=== PATIENT | male | born 1950 | race Caucasian/White ===

== ENCOUNTER → 2019-10-19 | Outpatient (CLI) | payer MEDICARE ==
--- NOTE | 2019-10-19 13:01 | RADIOLOGY REPORT (SQ) ---
EXAM DESCRIPTION: MRI LUMBAR SPINE WITHOUT IMAGES COMPLETED DATE/TIME: 10/19/2019 10:37 am REASON FOR STUDY: (M54.5)LOW BACK PAIN;(M54.16)RADICULOPATHY, LUMBAR REGION M54.5 LOW BACK PAIN M54 .16 RADICULOPATHY, LUMBAR REGION COMPARISON: None. TECHNIQUE: Sagittal and Axial imaging includes T1, T2, STIR and gradient echo sequences. Coronal T2/ HASTE imaging. LIMITATIONS: None. FINDINGS: VISUALIZED UPPER ABDOMEN: High high T2 signal left renal cysts. SEGMENTATION: There are 5 lumbar-type vertebral bodies. There is no transition anatomy at the lumbos acral junction. ALIGNMENT: There is straightening of the normal lordotic curvature of the cervical spine. VERTEBRAE: Intact. BONE MARROW: Normal. DISC SIGNAL: The L3-L4, L4-L5 and L5-S1 intervertebral discs are narrowed and desiccated. POSTERIOR ELEMENTS: Intact. HARDWARE: None in the spine. CORD AND CONUS: The conus medullaris terminates at the level of T12-L1 and is normal in caliber and s ignal intensity. SOFT TISSUES: No abnormality. L1-L2: No spinal or foraminal stenosis. L2-L3: No spinal or foraminal stenosis. L3-L4: Broad-based disc bulge that flattens the ventral aspect of the thecal sac and encroaches upon the inferior aspect of the neuroforamina ; and degeneration of the facet joints. These findings resu lts in no high-grade foraminal or spinal stenosis. L4-L5: Broad-based disc bulge eccentric to the left that encroaches upon the inferior aspect the neur oforamina ; hypertrophy of the ligamentum flavum ; and degeneration of the facet joints. These findi ngs result in mild right and moderate left foraminal stenosis, mild compression of the thecal sac, an d probable compression of the intrathecal left L5 nerve root. L5-S1: Broad-based disc protrusion that flattens the ventral aspect of the thecal sac and encroaches upon the inferior aspect of the neuroforamina ; and degeneration of the facet joints. These findings results and mild to moderate right and mild left foraminal stenosis, and probable compression of the intrathecal left S1 nerve root. LOWER THORACIC: No stenosis. SACRUM: Intact. OTHER: No other findings. IMPRESSION: Degenerative spondylosis and facet arthropathy of the lumbar spine with moderate stenosi s of the left L4-L5 neuroforamen and probable compression of the intrathecal left L5 and S1 nerve michela ts as detailed above. TECHNICAL DOCUMENTATION: JOB ID: [id number] 2010 [employer]- All Rights Reserved Reading location - IP/workstation name: [email or web address]
== END ==
LOC: RAD 09:10
PROVIDERS: ATTEND Orthopaedic Surgery
DX: M54.16 Radiculopathy, lumbar region (principal); M47.897 Other spondylosis, lumbosacral region; M54.5 Low back pain
CPT/HCPCS: 72148

== ENCOUNTER 2019-12-30 19:12 | Inpatient (IN) | payer MEDICARE ==
--- NOTE | 2019-12-30 19:33 | ER Document Report ---
ED Medical Screen (RME) - General Chief Complaint: Breathing Difficulty Stated Complaint: DIFFICULTY BREATHING Time Seen by Provider: 12/30/19 19:25 Primary Care Provider: VIOLETA LOVING MD [Primary Care Provider] - Follow up as needed Information source: Patient, Relative Notes: Patient is a 69-year-old male comes the emergency room with a 3 to 4-day onset of increasing shortness of breath. Patient has a recent pertinent history for cardiac and that 1 year ago he went to [place] in January [id number] and was found to have need for 1 stent placement. He has had a slight history of co ngestive heart failure back then that seems to have cleared up. Patient also has been recently seen by a neurologist who is sent him to physical therapy because of a pinched nerve in his low back and some discomfort and pain running down his left leg. He is in physical therapy today when he got to the house and had him lay flat patient was unable to breathe because of the position on laying down. He denies having any dyspnea on exertion states he can walk without getting short of breath it is only when he lays down that he does so. He denies any chest pain. He does state that when he can catch his breath that is when he has heaviness in the chest. Physical examination: Patient is a frail-appearing 69-year-old male who does state that he is losing weight and does not know why. He does appear to be slightly uncomfortable. Cardiac: Patient is tachycardic at 113 beats a minute. No murmurs are heard on auscultation. Lungs: Bilateral breath sounds breath sounds decreased throughout primarily in the lower bases bilaterally with Rales heard on the left as compared to the right. Abdomen: Bowel sounds present all 4 quads nontender in a sitting position to palpation. Lower extremities patient has 2+ pitting edema in the left lower extremity. TRAVEL OUTSIDE OF THE [place] IN LAST 30 DAYS: No - Related Data Home Medications: metformin, atorvastatin,losartan,plavix, carvedilol, asa, soliqua Physical Exam - Vital signs Vitals: Temp Pulse Resp BP Pulse Ox 98.4 F 119 H 13 153/81 H 100 12/30/19 19:16 12/30/19 19:16 12/30/19 19:16 12/30/19 19:16 12/30/19 19:16 Course - Vital Signs Vital signs: Temp Pulse Resp BP Pulse Ox 98.4 F 119 H 20 153/87 H 100 12/30/19 19:20 12/30/19 19:20 12/30/19 19:20 12/30/19 19:20 12/30/19 19:20 Doctor's Discharge - Discharge Referrals: VIOLETA LOVING MD [Primary Care Provider] - Follow up as needed
[2019-12-30 19:50] LABS: ABSOLUTE BASOPHILS # (AUTO) 0.1 10^3/uL (0.0-0.2); ABSOLUTE EOSINOPHILS # (AUTO) 0.5 10^3/uL (0.0-0.6); ABSOLUTE LYMPHOCYTES (AUTO) 1.3 10^3/uL (0.5-4.7); ABSOLUTE MONOCYTES (AUTO) 0.6 10^3/uL (0.1-1.4); ABSOLUTE NEUT (AUTO) 5.6 10^3/uL (1.7-8.2); BASOPHILS % (AUTO) 1.3 % (0-2); EOSINOPHILS % (AUTO) 6.1 % (0-6); HEMATOCRIT 38.9 % (37.9-51.0); LYMPHOCYTES % (AUTO) 15.8 % (13-45); MEAN CORPUSCULAR HEMOGLOBIN 29.9 pg (27.0-33.4); MEAN CORPUSCULAR HGB CONC 33.5 g/dL (32.0-36.0); MEAN CORPUSCULAR VOLUME 89 fl (80-97); MONOCYTES % (AUTO) 7.6 % (3-13); PLATELET COUNT 276 10^3/uL (150-450); RED BLOOD COUNT 4.35 10^6/uL (4.35-5.55); RED CELL DISTRIBUTION WIDTH 13.2 % (11.5-14.0); SEGMENTED NEUTROPHILS % (AUTO) 69.2 % (42-78); TOTAL CELLS COUNTED % (AUTO) 100 %; WHITE BLOOD COUNT 8.1 10^3/uL (4.0-10.5)
[2019-12-30 20:15] LABS: ALBUMIN 4.3 g/dL (3.5-5.0); ALKALINE PHOSPHATASE 66 U/L (38-126); ANION GAP 7 (5-19); ASPARTATE AMINO TRANSFERASE 29 U/L (17-59); BILIRUBIN,TOTAL 0.6 mg/dL (0.2-1.3); BLOOD UREA NITROGEN 23 mg/dL (7-20); CALCIUM 9.4 mg/dL (8.4-10.2); CARBON DIOXIDE 28 mmol/L (22-30); CHLORIDE 102 mmol/L (98-107); GLUCOSE 213 mg/dL (75-110); TOTAL PROTEIN 7.9 g/dL (6.3-8.2)
--- NOTE | 2019-12-30 20:20 | RADIOLOGY REPORT (SQ) ---
EXAM DESCRIPTION: [facility]: XR CHEST 2 VIEWS Views: 2 CLINICAL HISTORY: 69 years Male; Short of breath; COMPARISON: None. FINDINGS: Lungs: There are small bilateral pleural effusions. Mild central interstitial edema is present diffusely in both lungs. No focal consolidation. No pneumothorax. Mediastinum: Mild aortic calcification. Heart size is normal. Bones: Bony structures are unremarkable. IMPRESSION: 1. Bilateral interstitial edema with small pleural effusions, likely congestive heart failure.
[2019-12-30 20:25] LABS: TROPONIN I 0.02 ng/mL
--- NOTE | 2019-12-30 21:12 | ER Document Report ---
ED Respiratory Problem - General Chief Complaint: Shortness Of Breath Stated Complaint: DIFFICULTY BREATHING Time Seen by Provider: 12/30/19 19:25 Notes: Patient is a 69-year-old male that comes emergency department for chief complaint of 4day of worsening shortness of breath. Over the past day he is also noticed some swelling in both of his legs. Patient also is undergoing physical therapy for his back and they told him that his heart rate has been elevated for the past several days as well. He denies chest pain, dizziness, nausea, vomiting, abdominal pain, flank pain. He is able to ambulate using his crutches but he cannot lie flat reportedly. He has a history of CAD with TN and stent in 2019 at [facility], he follows with local cardiology in [place]. Patient states that he was temporarily on a diuretic after his TN but this was taken off. Past medical history also includes type 2 diabetes, hypertension, hyperlipidemia, he is on Plavix, primary care is Dr. Murry. TRAVEL OUTSIDE OF THE [place] IN LAST 30 DAYS: No - Related Data Allergies/Adverse Reactions: No Known Allergies Allergy (Unverified 12/31/19 02:54) Home Medications: metformin, atorvastatin,losartan,plavix, carvedilol, asa, soliqua Past Medical History - General Information source: Patient, Relative - Social History Smoking Status: Former Smoker Frequency of alcohol use: None Drug Abuse: None Lives with: Family Family History: None Patient has homicidal ideation: No - Past Medical History Cardiac Medical History: Reports: Hx Coronary Artery Disease, Hx Heart Attack, Hx Hypertension Endocrine Medical History: Reports: Hx Diabetes Mellitus Type 2 Past Surgical History: Reports: Hx Cardiac Surgery - stent - Immunizations Hx Diphtheria, Pertussis, Tetanus Vaccination: Yes Review of Systems - Review of Systems Constitutional: No symptoms reported EENT: No symptoms reported Cardiovascular: See HPI Respiratory: See HPI Gastrointestinal: No symptoms reported Genitourinary: No symptoms reported Male Genitourinary: No symptoms reported Musculoskeletal: No symptoms reported Skin: No symptoms reported Hematologic/Lymphatic: No symptoms reported Neurological/Psychological: No symptoms reported Physical Exam - Vital signs Vitals: Temp Pulse Resp BP Pulse Ox 98.4 F 119 H 13 153/81 H 100 12/30/19 19:16 12/30/19 19:16 12/30/19 19:16 12/30/19 19:16 12/30/19 19:16 - Notes Notes: GENERAL: Alert, interacts well. No acute distress. HEAD: Normocephalic, atraumatic. EYES: Pupils equal, round, and reactive to light. Extraocular movements intact. ENT: Oral mucosa moist, tongue midline. Oropharynx unremarkable. Airway patent. LUNGS: Slightly decreased breath sounds bilaterally, rales heard in the lower lung vazquez especially on the left. No tachypnea or labored breathing. HEART: Tachycardia, normal rhythm, no murmur ABDOMEN: Soft, non-tender. Non-distended. EXTREMITIES: Moves all 4 extremities spontaneously. Bilateral 1+ pitting edema. Normal radial and dorsalis pedis pulses bilaterally. No cyanosis. BACK: no cervical, thoracic, lumbar midline tenderness. No saddle anesthesia, normal distal neurovascular exam. Moves all extremities in full range of motion. NEUROLOGICAL: Alert and oriented x3. Normal speech. Cranial nerves II through XII grossly intact. Strength 5/5 in all extremities. PSYCH: Normal affect, normal mood. SKIN: Warm, dry, normal turgor. No rashes or lesions noted. Course - Re-evaluation Re-evalutation: Patient is tachycardic at about 110 just at rest. He has shortness of breath with exertion and with lying flat he has orthopnea. He has rales on exam worse on the left. He has lower extremity edema. He denies history of heart failure and he is not currently on a diuretic. CBC nonspecific, chemistry nonspecific, BNP is elevated at greater than 1500, troponin indeterminate. Chest x-ray shows vascular congestion and small pleural effusions. D-dimer is positive. This was performed because of patient's worsening dyspnea on exertion and persistent tachycardia. CT was performed but shows vascular congestion and pleural effusions but no blood clot or other concerning findings. I had discussed this before the d-dimer with patient at length, discussed the details of this, they state understanding. Given Lasix, given nitroglycerin, because of patient's new heart failure, symptomatic and difficult ambulation and lying down, and need for additional work-up and treatment patient will require admission. Discussed with Dr. Clemente. Discussed with Dr. Ardon, hospitalist, patient accepted to [facility] for admission. Patient and significant other state appreciation and agreement. - Vital Signs Vital signs: Temp Pulse Resp BP Pulse Ox 97.4 F 106 H 16 147/83 H 100 12/31/19 02:34 12/31/19 02:34 12/31/19 02:34 12/31/19 02:34 12/31/19 02:34 - Laboratory Result Diagrams: 12/30/19 19:37 12/30/19 19:37 Laboratory results interpreted by me: 12/30/19 12/30/19 12/30/19 19:37 19:37 19:37 Hgb 13.0 L Eos % (Auto) 6.1 H D-Dimer Sodium 136.9 L BUN 23 H Creatinine 1.32 H Est GFR (MDRD) Non-Af 54 L Glucose 213 H NT-Pro-B Natriuret Pep 1540 H 12/30/19 19:37 Hgb Eos % (Auto) D-Dimer 0.72 H Sodium BUN Creatinine Est GFR (MDRD) Non-Af Glucose NT-Pro-B Natriuret Pep - EKG Interpretation by Me Additional EKG results interpreted by me: EKG shows sinus tachycardia at a rate of 115, borderline prolonged QT interval at 482, normal axis, no T wave inversions or ST segment changes in consecutive leads. Some artifact is present. Discharge - Discharge Clinical Impression: Shortness of breath, Pulmonary vascular congestion, Swelling of lower extremity, Tachycardia Condition: Stable Disposition: ADMITTED INPATIENT Admitting Provider: Duglas (Hospitalist) Unit Admitted: [facility]
--- NOTE | 2019-12-30 23:47 | RADIOLOGY REPORT (SQ) ---
CLINICAL HISTORY: tachycardia, short of breath COMPARISON: 09/18/2014. TECHNIQUE: CT CHEST ANGIOGRAPHY WITHOUT THEN WITH IV CONTRAST on 12/30/2019 10:38 PM CDT. MIPS reconstructions were generated. This exam was performed according to our departmental dose-optimization program, which includes automated exposure control, adjustment of the mA and/or kV according to patient size and/or use of iterative reconstruction technique. MIP images were generated. FINDINGS: Thoracic aorta is normal in course and caliber without aneurysm or dissection. Pulmonary arteries are adequately opacified without acute or chronic filling defects. The heart is moderately enlarged. There is no pericardial effusion. Intrathoracic lymph nodes are not enlarged. There are moderate bilateral pleural effusions. Central airways are patent. There is bibasilar atelectasis. There is mild intralobular septal thickening. There are no acute abnormalities within the limited images of the upper abdomen. There are no acute osseous findings. No suspicious bony lesions. IMPRESSION: Cardiomegaly with no aortic dissection or aneurysm. No pulmonary embolus. Pleural effusions with probable mild pulmonary edema.
[2019-12-30] MEDS ORDERED: FUROSEMIDE INJ/PF 40 MG/4 ML SDV IV ONE (23:53)
[2019-12-30] MEDS ORDERED: NITROGLYCERIN 5 MG (0.2 MG/HR) PATCH.TD24 TD ONE (23:53)
[2019-12-31] MEDS ORDERED: ACETAMINOPHEN 325 MG TABLET PO PRN (01:18)
[2019-12-31] MEDS ORDERED: MAGNESIUM HYDROXIDE SUSP 30 ML UDCUP PO PRN ×2 (01:18→01:47)
[2019-12-31] MEDS ORDERED: PROMETHAZINE HCL INJ 25 MG/1 ML VIAL IV PRN (01:18)
[2019-12-31] MEDS ORDERED: MAG HYDROX/AL HYDROX/SIMETH SUSP 30 ML UDCUP PO PRN (01:18)
[2019-12-31] MEDS ORDERED: MORPHINE SULFATE 10 MG/ML INJ IV PRN ×6 (01:47→11:35)
[2019-12-31] MEDS ORDERED: DEXTROSE 40% GEL 15 GM TUBE PO PRN ×2 (01:47)
[2019-12-31] MEDS ORDERED: GLUCAGON,HUMAN RECOMB 1 MG INJ IM PRN (01:47)
[2019-12-31] MEDS ORDERED: METOPROLOL TARTRATE PF/INJ 5 MG/5 ML SDV IV PRN (01:47)
[2019-12-31] MEDS ORDERED: LORAZEPAM INJ 2 MG/1 ML VIAL IV PRN (01:47)
[2019-12-31] MEDS ORDERED: DEXTROSE 50%-WATER 25 GM/50 ML DISP.SYRIN IV PRN ×2 (01:47)
[2019-12-31] MEDS ORDERED: MELATONIN 5 MG TABLET PO PRN (01:47)
[2019-12-31] MEDS ORDERED: GUAIFENESIN SYRP 200 MG/10 ML UDC PO PRN (01:49)
[2019-12-31] MEDS: CARVEDILOL 6.25 MG TABLET PO SCH ×3 (03:00→21:14)
--- NOTE | 2019-12-31 03:17 | PDOC H&P ---
History of Present Illness Admission Date/PCP: 12/31/2019 00:58 VIOLETA LOVING MD Patient complains of: Dyspnea History of Present Illness: MIGUEL SANTOS JR is a 69 year old male who presents the emergency room with a 4-day history of dyspnea. He admits progressively worsening dyspnea over the last 4 days becoming severe over the last 24 hours prior to presentation. His dyspnea is worsened by exertion. His dyspnea has been accompanied by orthopnea and associated with increased swelling in his lower extremities over the last 24 hours. He denies other associated or accompanying signs and symptoms. He denies prior similar episodes. He has not identified any additional aggravating or ameliorating factors for his dyspnea. In the emergency room he was found to have a BNP of 1540 and a chest x-ray demonstrating congestive heart failure. Patient was subsequently admitted to the hospital for further evaluation and treatment on the heart failure protocol in the IMCU. Past Medical History Cardiac Medical History: Reports: Coronary Artery Disease, Myocardial Infarction, Hyperlipidema, Hypertension Denies: Atrial Fibrillation, Congestive Heart Failure, DVT, Pulmonary Embolism Pulmonary Medical History: Denies: Asthma, Chronic Obstructive Pulmonary Disease (COPD) EENT Medical History: Denies: Cataracts, Ears - Hearing aids Neurological Medical History: Denies: Hemorrhagic CVA, Ischemic CVA, Seizures Endocrine Medical History: Reports: Diabetes Mellitus Type 2 Denies: Diabetes Mellitus Type 1, Hyperthyroidism, Hypothyroidism, Obesity Renal/ Medical History: Denies: Chronic Kidney Disease, Nephrolithiasis Malignancy Medical History: Reports: None GI Medical History: Denies: Cirrhosis, Crohn's Disease, Gastroesophageal Reflux Disease, Hepatitis, Peptic Ulcer Disease, Ulcerative Colitis Musculoskeltal Medical History: Reports: Other - Lower back pain with radiculopathy to left lower extremity Denies: Arthritis, Gout Skin Medical History: Denies: Eczema, Psoriasis Psychiatric Medical History: Denies: Alcohol Dependency, Substance Abuse, Tobacco Dependency Traumatic Medical History: Reports: None Hematology: Denies: Anemia, Bleeding Tendencies Infectious Medical History: Reports: None Past Surgical History Past Surgical History: Reports: Cardiac Catheterization, Coronary Stent Social History Information Source: Patient Lives with: Spouse/Significant other Smoking Status: Former Smoker Electronic Cigarette use?: No Frequency of Alcohol Use: None Hx Recreational Drug Use: No Drugs: None Hx Prescription Drug Abuse: No - Advance Directive Resuscitation Status: Full Code Surrogate healthcare decision maker:: Katheryn Santos Family History Family History: CVA. denies: CAD, DM, Hypertension, Malignancy Parental Family History Reviewed: Yes Children Family History Reviewed: No Sibling(s) Family History Reviewed.: Yes Medication/Allergy Home Medications: Atorvastatin Calcium [Lipitor 80 mg Tablet] 80 mg PO QHS 12/31/19 Carvedilol [Coreg 6.25 mg Tablet] 12/31/19 Clopidogrel Bisulfate [Plavix 75 mg Tablet] 75 mg PO 12/31/19 Allergies/Adverse Reactions: No Known Allergies Allergy (Unverified 12/31/19 02:54) Review of Systems Constitutional: ABSENT: chills, fever(s) Eyes: ABSENT: visual disturbances, other - Eye pain Ears: ABSENT: hearing changes, other - Ear pain Nose, Mouth, and Throat: ABSENT: headache(s), sore throat Cardiovascular: PRESENT: as per HPI, dyspnea on exertion, edema, orthropnea. A BSENT: chest pain, palpitations Respiratory: PRESENT: as per HPI, dyspnea. ABSENT: cough Gastrointestinal: ABSENT: abdominal pain, constipation, diarrhea, nausea, vomiting Genitourinary: ABSENT: dysuria, hematuria Musculoskeletal: PRESENT: back pain. ABSENT: joint swelling, muscle weakness Integumentary: ABSENT: pruritus, rash Neurological: ABSENT: confusion, convulsions, focal weakness, memory loss, syncope Psychiatric: ABSENT: anxiety, depression Endocrine: ABSENT: cold intolerance, heat intolerance Hematologic/Lymphatic: ABSENT: easy bleeding, easy bruising Allergic/Immunologic: ABSENT: seasonal rhinorrhea Physical Exam Vital Signs: Temp Pulse Resp BP Pulse Ox 98.4 F 119 H 20 153/87 H 100 12/30/19 19:20 12/30/19 19:20 12/30/19 19:20 12/30/19 19:20 12/30/19 19:20 Intake & Output 12/29/19 12/30/19 12/31/19 23:59 23:59 23:59 Output Total 800 490 Balance -800 -490 Weight 69.853 kg General appearance: PRESENT: no acute distress, cooperative Head exam: PRESENT: atraumatic, normocephalic Eye exam: PRESENT: conjunctiva pink. ABSENT: conjunctival injection, scleral icterus Ear exam: PRESENT: normal external ear exam. ABSENT: bleeding, drainage Mouth exam: PRESENT: dry mucosa, neck supple Neck exam: PRESENT: JVD - Bilateral at 30 degrees elevation. ABSENT: thyromegaly, tracheal deviation Respiratory exam: PRESENT: rales - Fine bibasilar rales, symmetrical Cardiovascular exam: PRESENT: gallop - S4 gallop rhythm, RRR, tachycardia. ABSENT: clicks, rubs Pulses: PRESENT: normal radial pulses, normal dorsalis pedis pul Vascular exam: PRESENT: normal capillary refill. ABSENT: pallor GI/Abdominal exam: PRESENT: normal bowel sounds, soft. ABSENT: tenderness Rectal exam: PRESENT: deferred Extremities exam: PRESENT: pedal edema, +1 edema - Bilateral pretibial pitting edema. ABSENT: joint swelling Musculoskeletal exam: ABSENT: deformity, dislocation Neurological exam: PRESENT: alert, oriented to person, oriented to place, oriented to time, oriented to situation, CN II-XII grossly intact. ABSENT: motor sensory deficit Psychiatric exam: PRESENT: appropriate affect, normal mood Skin exam: PRESENT: dry, intact, warm. ABSENT: jaundice, rash, urticaria Results Laboratory Results: 12/30/19 19:37 12/30/19 19:37 12/30/19 12/30/19 19:37 19:37 WBC 8.1 RBC 4.35 Hgb 13.0 L Hct 38.9 MCV 89 MCH 29.9 MCHC 33.5 RDW 13.2 Plt Count 276 Seg Neutrophils % 69.2 Sodium 136.9 L Potassium 5.0 Chloride 102 Carbon Dioxide 28 Anion Gap 7 BUN 23 H Creatinine 1.32 H Est GFR ( Amer) > 60 Glucose 213 H Calcium 9.4 Total Bilirubin 0.6 AST 29 Alkaline Phosphatase 66 Total Protein 7.9 Albumin 4.3 12/30/19 19:37 Troponin I 0.020 NT-Pro-B Natriuret Pep 1540 H Impressions: Chest X-Ray 12/30/19 19:33 IMPRESSION: 1. Bilateral interstitial edema with small pleural effusions, likely congestive heart failure. Chest/Abdomen CTA 12/30/19 22:38 IMPRESSION: Cardiomegaly with no aortic dissection or aneurysm. No pulmonary embolus. Pleural effusions with probable mild pulmonary edema. Assessment and Plan - Diagnosis (1) Acute congestive heart failure Qualifiers: Heart failure type: unspecified Qualified Code(s): I50.9 - Heart failure, unspecified Is this a current diagnosis for this admission?: Yes (2) Tachycardia Is this a current diagnosis for this admission?: Yes (3) Essential hypertension Is this a current diagnosis for this admission?: Yes (4) Hyperlipidemia, unspecified Qualifiers: Hyperlipidemia type: unspecified Qualified Code(s): E78.5 - Hyperlipidemia, unspecified Is this a current diagnosis for this admission?: Yes (5) Diabetes mellitus type 2 in nonobese Is this a current diagnosis for this admission?: Yes - Plan Summary Summary: Patient will be admitted to the [facility] where he will receive routine supportive and symptomatic cares. He will be treated via the congestive heart failure protocol. Dr. Madden will be consulted for cardiology evaluation. He will use morphine sulfate 2 to 4 mg IV every 2 hours as needed for pain. He will use Ativan 1 mg IV every 4 hours as needed for anxiety or restlessness. He will be started on a cardiac and diabetic restricted diet. - Time Time Spent with patient: 15-24 minutes Medications reviewed and adjusted accordingly: Yes Anticipated Discharge Disposition: Home with Home Health Anticipated Discharge: within 72 hours - Inpatient Certification Based on my medical assessment, after consideration of the patient's comorbidities, presenting symptoms, or acuity I expect that the services needed warrant INPATIENT care.: Yes I certify that my determination is in accordance with my understanding of Medic are's requirements for reasonable and necessary INPATIENT services [42 CFR 412.3e].: Yes Medical Necessity: Significant Comorbidiites Make Outpatient Treatment Too Risky, Need Close Monitoring Due to Risk of Patient Decompensation, Need For Continuous Telemetry Monitoring, Risk of Complication if Not Cared For in Hospital
[2019-12-31] MEDS ORDERED: FUROSEMIDE INJ/PF 40 MG/4 ML SDV IV SCH ×2 (06:00→18:00)
[2019-12-31] MEDS ORDERED: NITROGLYCERIN 2% OINTMENT 1 GM PACKET TP SCH (06:00)
[2019-12-31] MEDS: PANTOPRAZOLE SODIUM 40 MG TABLET.DR PO SCH (06:27)
[2019-12-31] MEDS: HEPARIN SOD (PORCINE) 5,000 UNIT/ML 1 ML VIAL SUBCUT SCH ×3 (06:31→21:15)
[2019-12-31 07:02] LABS: CREATINE KINASE MB 1.35 ng/mL (<4.55); TROPONIN I 0.028 ng/mL
[2019-12-31] MEDS: INSULIN REG, HUMAN 100 UNIT/ML 3 ML VIAL (PYX) SUBCUT SCH ×4 (08:13→21:17)
--- NOTE | 2019-12-31 08:44 | PDOC CONSULTATION ---
Consultation Consult Date: 12/31/19 Attending physician:: NASIR ALLEN Provider Consulted: DANIELE ROMERO Consult reason:: HF History of Present Illness Admission Date/PCP: 12/31/19 00:55 VIOLETA LOVING MD History of Present Illness: MIGUEL MACARIO JR is a 69 year old male history of CAD (inferior STEMI, s/p BEN to mRCA 01/13/19, COFFEE GRINDER mLCx), insulin requiring type 2 diabetes mellitus, hypertension, hyperlipidemia who is consulted to our service for evaluation of heart failure. He is followed by my partner in the office, Dr. Porter who notes the patient's consistent "confusion over medication changes made at the last visit. Even though the patient brings handwritten instructions that were provided to him at last visit he did not follow them correctly. The patient was to start carvedilol in place of metoprolol and notes starting carvedilol than stopping and restarting metoprolol which is unclear. I also asked the patient to use Lasix on an as-needed basis for weight gain of which she explains there was weight gain however his weight is lower today than at previous visits". The patient had been in his usual state of health until approximately 4 days prior to admission when he began noticing racing heart as well as lower extremity edema associated with shortness of breath consistent with heart failure symptoms. This morning he feels much better and is found resting comfortably in his bed. He admits that he had not been taking his Lasix because he had been losing weight. He tells me that he had been switched from Brilinta to Plavix 75 mg daily because of a very high co-pay that he cannot afford. He had been taking his losartan at home however he does not remember what dose he supposed to be on. His telemetry shows normal sinus rhythm without any ventricular dysrhythmias. His fluid balance since admission is -1290 cc. His cardiac troponins have been in the indeterminate range with an elevated proBNP at a little bit over 1500. Physical exam on 12/31/2019: GENERAL: Pleasant and conversational. Oriented x3 with normal mood. Not in acute distress. Well groomed and well developed. HEENT: Normocephalic, atraumatic. Pupils equal. Sclerae anicteric. Oropharynx moist. NECK: No JVD. No carotid bruits. LUNGS: Mild Rales at both bases. Normal respiratory effort without the use of accessory muscles or intercostal retractions. CARDIOVASCULAR: Regular rate and rhythm, normal S1 and S2 without murmurs, rubs, or gallops. PMI not displaced. ABDOMEN: No masses or tenderness to palpation. No bruit. No splenomegaly or hepatomegaly. No abdominal aorta bruit noted. EXTREMITIES: Trace pitting edema bilaterally, no cyanosis, no clubbing. +2 pulses femoral and pedal pulses bilaterally. SKIN: No lesions or rashes. MUSCULOSKELETAL: No chest tenderness to palpation. NEUROLOGIC: Nonfocal. No gross sensory or motor deficits bilateral upper or lower extremities. Outpatient medications per most recent cardiology visit on on 05/19/2019: -Aspirin 81 mg daily, -Brilinta 90 mg twice a day, -Atorvastatin 80 mg daily at bedtime and tolerating these medications without any complaints. -Losartan 25 mg daily. -Furosemide 40 mg once daily. His home weight ranges between 158 and 160 pounds. -Metoprolol succinate 25 mg once daily. He denies lower extremity edema, orthopnea or PND. Cardiac studies: CARDIAC CATHERIZATION Ht: 68 inches Wt: 72.57 kgs BSA: 1.86 Procedure Date: 01/13/2019 PCI ACUTE CLOSURE DURING AMI W/BEN LEFT HEART CATH WITH LV PCI OF COFFEE GRINDER ANY COMBO Other Inferior STEMI CONCLUSIONS Acute UT due to occlusion of Mid RCA Successful PCI with Drug eluting stent and PTCA to the Mid RCA No Aortic Valve Stenosis LEFT HEART ASSESSMENT Left Ventricular Ejection Fraction: Not assessed (due to elevated Cr) LVEDP: 21 mmHg Mildly elevated Left Ventricular End Diastolic Pressure Valve Assessment: No Aortic Valve Stenosis CORONARY ANGIOGRAPHY DOMINANCE: Right Dominant LEFT MAIN: No significant disease noted LEFT ANTERIOR DECENDING ARTERY: PROX LAD: Mild luminal irregularities less than 30% DIAGONAL 1: 60 % Ostial Stenosis, Vessel is small in size DIAGONAL 2: 80 % Proximal Stenosis (not felt to be a culprit lesion due to inferior EKG changes.) CIRCUMFLEX ARTERY: MID CIRC: appears to be COFFEE GRINDER with faint homocollaterals to two small caliber OM branches. RAMUS: No significant disease noted, Vessel is small in size RIGHT CORONARY ARTERY: MID RCA: 85 % Stenosis RT PLV: No significant disease noted RIGHT PDA: No significant disease noted COLLATERAL FLOW: Collateral flow from RCA to CIRC INTERVENTION PROCEDURE INFORMATION LESION SITE: RCA (Mid) , Pre Intervention Stenosis: 85 % Pre intervention VANESSA flow: VANESSA-3 Post Intervention Stenosis: 0 % Post intervention VANESSA flow: VANESSA-3 PROCEDURE: Drug Eluting Stent with pre and post dilatation. Balloon(s) Balloon- Trek 2.5x15 Inflated @ 17 franko for 20 secs Stent(s) deployed @ 20 franko for 20 secs 16atm for 20 secs LESION SITE: Circumflex (Mid) 100%chronic total occlusion: Yes Balloon(s) Balloon- Mini Trek 1.2x6 Echo 01/14/19: Cardiac Echo w/Contrast Cardiac Echo with Contrast Report A complete two-dimensional transthoracic echocardiogram was performed including 2D, M-mode, spectral and tissue Doppler and color flow Doppler. Definity echo enhancing agent used. Definity lot number: [id number]. Contrast was injected into an intravenous site in the left arm. Interpretation Summary Left ventricular systolic function is normal. Left ventricular wall motion is normal. Moderate mitral regurgitation. Trace aortic insufficiency Past Medical History Cardiac Medical History: Reports: Coronary Artery Disease, Myocardial Infarction, Hyperlipidema, Hypertension Denies: Atrial Fibrillation, Congestive Heart Failure, DVT, Pulmonary Embolism Pulmonary Medical History: Denies: Asthma, Chronic Obstructive Pulmonary Disease (COPD) EENT Medical History: Denies: Cataracts, Ears - Hearing aids Neurological Medical History: Denies: Hemorrhagic CVA, Ischemic CVA, Seizures Endocrine Medical History: Reports: Diabetes Mellitus Type 2 Denies: Diabetes Mellitus Type 1, Hyperthyroidism, Hypothyroidism, Obesity Renal/ Medical History: Denies: Chronic Kidney Disease, Nephrolithiasis Malignancy Medical History: Reports: None GI Medical History: Denies: Cirrhosis, Crohn's Disease, Gastroesophageal Reflux Disease, Hepatitis, Peptic Ulcer Disease, Ulcerative Colitis Musculoskeltal Medical History: Reports: Other - Lower back pain with radiculopathy to left lower extremity Denies: Arthritis, Gout Skin Medical History: Denies: Eczema, Psoriasis Psychiatric Medical History: Denies: Alcohol Dependency, Depression, Substance Abuse, Tobacco Dependency Traumatic Medical History: Reports: None Hematology: Denies: Anemia, Bleeding Tendencies Infectious Medical History: Reports: None Past Surgical History Past Surgical History: Reports: Cardiac Catheterization, Coronary Stent Social History Lives with: Family Smoking Status: Former Smoker Cigarettes Packs Per Day: 1 Electronic Cigarette use?: No Number of Years Smokin Last Time Smoked: 10 years ago Frequency of Alcohol Use: None Hx Recreational Drug Use: No Drugs: None Hx Prescription Drug Abuse: No - Advance Directive Resuscitation Status: Full Code Family History Family History: None Parental Family History Reviewed: Yes Children Family History Reviewed: Yes Sibling(s) Family History Reviewed.: Yes Medication/Allergy Home Medications: Atorvastatin Calcium [Lipitor 80 mg Tablet] 80 mg PO QHS 12/31/19 Carvedilol [Coreg 6.25 mg Tablet] 12/31/19 Clopidogrel Bisulfate [Plavix 75 mg Tablet] 75 mg PO 12/31/19 Allergies/Adverse Reactions: No Known Allergies Allergy (Unverified 12/31/19 02:54) Physical Exam Vital Signs: Temp Pulse Resp BP Pulse Ox 97.4 F 106 H 16 147/83 H 100 12/31/19 02:34 12/31/19 02:34 12/31/19 02:34 12/31/19 02:34 12/31/19 02:34 Intake & Output 12/29/19 12/30/19 12/31/19 06:59 06:59 06:59 Output Total 1290 Balance -1290 Weight 69.9 kg Results Laboratory Results: 12/30/19 19:37 12/30/19 19:37 12/30/19 12/30/19 19:37 19:37 WBC 8.1 RBC 4.35 Hgb 13.0 L Hct 38.9 MCV 89 MCH 29.9 MCHC 33.5 RDW 13.2 Plt Count 276 Seg Neutrophils % 69.2 Sodium 136.9 L Potassium 5.0 Chloride 102 Carbon Dioxide 28 Anion Gap 7 BUN 23 H Creatinine 1.32 H Est GFR ( Amer) > 60 Glucose 213 H Calcium 9.4 Total Bilirubin 0.6 AST 29 Alkaline Phosphatase 66 Total Protein 7.9 Albumin 4.3 12/30/19 12/31/19 12/31/19 19:37 00:33 00:33 Creatine Kinase 126 CK-MB (CK-2) Troponin I 0.020 0.035 NT-Pro-B Natriuret Pep 1540 H 12/31/19 00:33 Creatine Kinase CK-MB (CK-2) 1.58 Troponin I Cancelled NT-Pro-B Natriuret Pep Impressions: Chest X-Ray 12/30/19 19:33 IMPRESSION: 1. Bilateral interstitial edema with small pleural effusions, likely congestive heart failure. Chest/Abdomen CTA 12/30/19 22:38 IMPRESSION: Cardiomegaly with no aortic dissection or aneurysm. No pulmonary embolus. Pleural effusions with probable mild pulmonary edema. 12/30/19 19:37 12/30/19 19:37 MCV 89 fl (80-97) 12/30/19 19:37 MCH 29.9 pg (27.0-33.4) 12/30/19 19:37 MCHC 33.5 g/dL (32.0-36.0) 12/30/19 19:37 RDW 13.2 % (11.5-14.0) 12/30/19 19:37 Seg Neutrophils % 69.2 % (42-78) 12/30/19 19:37 Chloride 102 mmol/L (98-107) 12/30/19 19:37 Carbon Dioxide 28 mmol/L (22-30) 12/30/19 19:37 Anion Gap 7 (5-19) 12/30/19 19:37 Est GFR ( Amer) > 60 (>60) 12/30/19 19:37 Glucose 213 mg/dL (75-110) H 12/30/19 19:37 Calcium 9.4 mg/dL (8.4-10.2) 12/30/19 19:37 Total Bilirubin 0.6 mg/dL (0.2-1.3) 12/30/19 19:37 AST 29 U/L (17-59) 12/30/19 19:37 Alkaline Phosphatase 66 U/L (38-126) 12/30/19 19:37 Total Protein 7.9 g/dL (6.3-8.2) 12/30/19 19:37 Albumin 4.3 g/dL (3.5-5.0) 12/30/19 19:37 12/30/19 12/31/19 12/31/19 19:37 00:33 00:33 Creatine Kinase 126 CK-MB (CK-2) Troponin I 0.020 0.035 NT-Pro-B Natriuret Pep 1540 H 12/31/19 00:33 Creatine Kinase CK-MB (CK-2) 1.58 Troponin I Cancelled NT-Pro-B Natriuret Pep Current Medication List Generic Name Dose Route Start Last Admin Trade Name Mikq PRN Reason Stop Dose Admin Acetaminophen 650 mg 12/31/19 01:18 Tylenol 325 Mg Tablet PO 01/30/20 01:17 Q4HP PRN pain or temp greater than 101F Al Hydrox/Mg Hydrox/Simethicone 30 ml 12/31/19 01:18 Maalox Plus Susp 30 Udcup PO 01/30/20 01:17 Q4HP PRN HEARTBURN Aspirin 81 mg 12/31/19 10:00 Ecotrin 81 Mg Ec Tablet PO 01/30/20 09:59 DAILY [facility] Carvedilol 6.25 mg 12/31/19 01:45 12/31/19 03:00 Coreg 6.25 Mg Tablet PO 01/30/20 01:44 6.25 mg Q12 ELLEN Administration Clopidogrel Bisulfate 75 mg 12/31/19 10:00 Plavix 75 Mg Tablet PO 01/30/20 09:59 DAILY [facility] Dextrose 12.5 gm 12/31/19 01:47 Dextrose Inj 50% Syringe (25 Gm/50 Ml) IV 01/30/20 01:46 PRN PRN FOR BG 50-69 IN ALERT PATIENT Protocol Dextrose 25 gm 12/31/19 01:47 Dextrose Inj 50% Syringe (25 Gm/50 Ml) IV 01/30/20 01:46 PRN PRN PER PROTOCOL Protocol Docusate Sodium 100 mg 12/31/19 10:00 Colace 100 Mg Capsule PO 01/30/20 09:59 DAILY [facility] Furosemide 40 mg 12/31/19 06:00 Lasix Inj/Pf 40 Mg/4 Ml Sdv IV 01/30/20 05:59 Q6 ELLEN Glucagon 1 mg 12/31/19 01:47 Glucagen Inj 1 Mg Vial IM 01/30/20 01:46 PRN PRN Evaluate for BG < 70 Protocol Glucose 15 gm 12/31/19 01:47 Glutose 40% Gel 15 Gm Tube PO 01/30/20 01:46 PRN PRN FOR BG 50-69 IN ALERT PATIENT Protocol Glucose 30 gm 12/31/19 01:47 Glutose 40% Gel 15 Gm Tube PO 01/30/20 01:46 PRN PRN FOR BG < 50 IN ALERT PATIENT Protocol Guaifenesin 200 mg 12/31/19 01:49 Robitussin Syrup 200 Mg/10 Ml Ud Cup PO 01/30/20 01:48 Q4HP PRN COUGH Heparin Sodium (Porcine) 5,000 unit 12/31/19 06:00 Heparin Inj 5,000 Units/Ml 1 Ml Vial SUBCUT 01/30/20 05:59 Q8 ELLEN Insulin Human Regular 0 - 15 unit 12/31/19 08:00 Humulin R (Pyxis) Insulin 100 Unit/Ml 3ml SUBCUT 01/30/20 07:59 ACHS [facility] Protocol Lorazepam 1 mg 12/31/19 01:47 Ativan Inj 2 Mg/1 Ml Vial IV 01/07/20 01:46 Q4HP PRN ANXIETY/AGITATION Magnesium Hydroxide 30 ml 12/31/19 01:18 Milk Of Magnesia 30 Ml Udcup PO 01/30/20 01:17 HSP PRN FOR CONSTIPATION Magnesium Hydroxide 30 ml 12/31/19 01:47 Milk Of Magnesia 30 Ml Udcup PO 01/30/20 01:46 HSP PRN FOR CONSTIPATION Melatonin 5 mg 12/31/19 01:47 Melatonin 5 Mg Tablet PO 01/30/20 01:46 HSP PRN SLEEP OR INSOMNIA Metoprolol Tartrate 5 mg 12/31/19 01:47 Lopressor Inj/Pf 5 Mg/5 Ml Sdv IV 01/30/20 01:46 Q4HP PRN Give For Sbp > 160 / Dbp > 100 Morphine Sulfate 2 mg 12/31/19 01:47 Morphine 10 Mg/Ml Inj IV 01/07/20 01:46 Q1HP PRN Acute Severe Dyspnea Morphine Sulfate 2 mg 12/31/19 02:05 Morphine 10 Mg/Ml Inj IV 01/07/20 02:04 Q2HP PRN PAIN SCALE 2/5 Morphine Sulfate 3 mg 12/31/19 02:05 Morphine 10 Mg/Ml Inj IV 01/07/20 02:04 Q2HP PRN PAIN SCALE 3-4/5 Morphine Sulfate 4 mg 12/31/19 02:05 Morphine 10 Mg/Ml Inj IV 01/07/20 02:04 Q2HP PRN PAIN SCALE 5/5 Nitroglycerin 1 gm 12/31/19 06:00 Nitrol 2% Ointment 1gm Packet TP 01/30/20 05:59 Q6 ELLEN Pantoprazole Sodium 40 mg 12/31/19 06:[address] Tablet PO 01/30/20 05:59 Q6AM ELLEN Promethazine HCl 12.5 mg 12/31/19 01:18 Phenergan Inj 25 Mg/1 Ml Vial IV 01/30/20 01:17 Q4HP PRN FOR NAUSEA/VOMITING Sodium Chloride 2.5 ml 12/31/19 06:00 Saline Flush 2.5 Ml Monoject Prefil Syrin IV 01/30/20 05:59 Q8 ELLEN Discontinued Medications Generic Name Dose Route Start Last Admin Trade Name Freq PRN Reason Stop Dose Admin Furosemide 40 mg 12/30/19 23:53 12/31/19 00:05 Lasix Inj/Pf 40 Mg/4 Ml Sdv IV 12/30/19 23:54 40 mg NOW ONE Administration Nitroglycerin 1 each 12/30/19 23:53 12/31/19 00:05 Nitro-Dur 5 Mg (0.2 Mg/Hr) Transdermal Patch TD 12/30/19 23:54 1 each NOW ONE Administration Assessment & Plan - Diagnosis (1) CAD (coronary artery disease) Plan: Inferior STEMI in January 2019. Status post 1 xience drug-eluting stent 3.0 mm 28 mm to the mid RCA January 13, 2019. With preserved left ventricular ejection fraction with moderate mitral regurgitation noted on echo; and residual disease and COFFEE GRINDER of left circumflex per catheterization report above. Unfortunately the patient had not been able to afford Brilinta therefore he was changed to Plavix 75 mg daily. Recommendations: -Continue with current medical management. -Continue with cardiac telemetry. -Start intensity statin therapy with atorvastatin 80 mg daily at bedtime. -We will continue to follow-up with you. (2) Acute congestive heart failure Qualifiers: Heart failure type: unspecified Qualified Code(s): I50.9 - Heart failure, unspecified Plan: The patient has a history of heart failure with preserved ejection fraction and had been managed in the outpatient setting with as needed Lasix however his outpatient veterinary parasitologist noted on several of his notes that the patient consistently appears to be confused about his medications and never brought them to the office for medication reconciliation. He admits diet as well as not taking his Lasix as instructed. He states that he had been taking his losartan at home but does not remember the dose. Recommendations: -Echocardiogram today to assess for structural heart disease. -Continue with current diuresis and management with close attention to renal function. -Start losartan 25 mg daily. -Restrict fluid intake to 1500 cc daily. -Low sodium diet, less than 1500 mg daily. -Strict intake and output. -Daily weights. -Daily BMP. -Replace electrolytes as needed. (3) Essential hypertension Is this a current diagnosis for this admission?: Yes Plan: His blood pressure is above goal. Recommendations: -Restart losartan 25 mg daily. (4) Hyperlipidemia, unspecified Qualifiers: Hyperlipidemia type: unspecified Qualified Code(s): E78.5 - Hyperlipidemia, unspecified Plan: The patient is supposed to be on high intensity statin therapy however he is not receiving anything yet. Recommendations: -Restart Lipitor 80 mg daily. (5) CKD (chronic kidney disease) Plan: Unknown baseline. We will continue to monitor with daily BMPs given his diuresis regimen.
[2019-12-31] MEDS: DOCUSATE SODIUM 100 MG CAPSULE PO SCH (09:56)
[2019-12-31] MEDS: ASPIRIN 81 MG TABLET, ENT COATED PO SCH (09:56)
[2019-12-31] MEDS: CLOPIDOGREL BISULFATE 75 MG TABLET PO SCH (09:57)
[2019-12-31 10:20] LABS: APPEARANCE,URINE CLEAR; BILIRUBIN,URINE NEGATIVE (NEGATIVE); COLOR,URINE STRAW; GLUCOSE, URINE NEGATIVE (NEGATIVE); KETONES,URINE NEGATIVE (NEGATIVE); PROTEIN,URINE 30 mg/dL (NEGATIVE); URINE SPECIFIC GRAVITY 1.013; UROBILINOGEN,URINE NEGATIVE mg/dL (<2.0)
--- NOTE | 2019-12-31 10:21 | EKG REPORT ---
SEVERITY:- ABNORMAL ECG - SINUS TACHYCARDIA NONSPECIFIC T ABNORMALITIES, INFERIOR LEADS BORDERLINE PROLONGED QT INTERVAL : Confirmed by: Carla Vitale 31-Dec-2019 10:20:00
[2019-12-31] MEDS ORDERED: LOSARTAN POTASSIUM 25 MG TABLET PO ONE (11:34)
[2019-12-31 13:09] LABS: CREATINE KINASE MB 1.17 ng/mL (<4.55); TROPONIN I 0.022 ng/mL
[2019-12-31] MEDS: FUROSEMIDE INJ/PF 100 MG/10 ML SDV IV SCH (17:30)
[2019-12-31] MEDS: ATORVASTATIN CALCIUM 80 MG TABLET PO SCH (21:14)
[2020-01-01] MEDS: HEPARIN SOD (PORCINE) 5,000 UNIT/ML 1 ML VIAL SUBCUT SCH ×3 (05:27→21:52)
[2020-01-01] MEDS: PANTOPRAZOLE SODIUM 40 MG TABLET.DR PO SCH (05:28)
[2020-01-01 07:06] LABS: ABSOLUTE BASOPHILS # (AUTO) 0.1 10^3/uL (0.0-0.2); ABSOLUTE EOSINOPHILS # (AUTO) 0.4 10^3/uL (0.0-0.6); ABSOLUTE LYMPHOCYTES (AUTO) 1.2 10^3/uL (0.5-4.7); ABSOLUTE MONOCYTES (AUTO) 0.8 10^3/uL (0.1-1.4); ABSOLUTE NEUT (AUTO) 6.3 10^3/uL (1.7-8.2); BASOPHILS % (AUTO) 0.9 % (0-2); EOSINOPHILS % (AUTO) 4.1 % (0-6); HEMATOCRIT 32.6 % (37.9-51.0); HEMOGLOBIN 11.3 g/dL (13.5-17.0); LYMPHOCYTES % (AUTO) 13.8 % (13-45); MEAN CORPUSCULAR HEMOGLOBIN 30.2 pg (27.0-33.4); MEAN CORPUSCULAR HGB CONC 34.6 g/dL (32.0-36.0); MEAN CORPUSCULAR VOLUME 87 fl (80-97); MONOCYTES % (AUTO) 9.7 % (3-13); PLATELET COUNT 235 10^3/uL (150-450); RED BLOOD COUNT 3.74 10^6/uL (4.35-5.55); RED CELL DISTRIBUTION WIDTH 13.6 % (11.5-14.0); SEGMENTED NEUTROPHILS % (AUTO) 71.5 % (42-78); TOTAL CELLS COUNTED % (AUTO) 100 %; WHITE BLOOD COUNT 8.8 10^3/uL (4.0-10.5)
[2020-01-01 07:22] LABS: ANION GAP 7 (5-19); BLOOD UREA NITROGEN 30 mg/dL (7-20); CARBON DIOXIDE 29 mmol/L (22-30); CHLORIDE 100 mmol/L (98-107); CHOLESTEROL 182.65 mg/dL (0-200); GLUCOSE 153 mg/dL (75-110); POTASSIUM 3.9 mmol/L (3.6-5.0); TRIGLYCERIDES 152 mg/dL (<150)
[2020-01-01 07:33] LABS: DIRECT LDL 118 mg/dL (<100)
[2020-01-01 07:38] LABS: FREE T3 3.43 pg/mL (2.77-5.27)
[2020-01-01 07:39] LABS: VLDL CHOLESTEROL 30.4 mg/dL (10-31)
[2020-01-01 07:52] LABS: THYROID STIMULATING HORMONE 1.04 uIU/mL (0.47-4.68)
[2020-01-01] MEDS: INSULIN REG, HUMAN 100 UNIT/ML 3 ML VIAL (PYX) SUBCUT SCH (08:00)
--- NOTE | 2020-01-01 08:15 | PDOC PROGRESS REPORT ---
Subjective Progress Note for:: 01/01/20 Subjective:: MIGUEL MACARIO JR is a 69 year old male history of CAD (inferior STEMI, s/p BEN to mRCA 01/13/19, INTERRELATED SPECIAL EDUCATION TEACHER mLCx), insulin requiring type 2 diabetes mellitus, hypertension, hyperlipidemia who is consulted to our service for evaluation of heart failure. He is followed by my partner in the office, Dr. Porter who notes the patient's consistent "confusion over medication changes made at the last visit. Even though the patient brings handwritten instructions that were provided to him at last visit he did not follow them correctly. The patient was to start carvedilol in place of metoprolol and notes starting carvedilol than stopping and restarting metoprolol which is unclear. I also asked the patient to use Lasix on an as-needed basis for weight gain of which she explains there was weight gain however his weight is lower today than at previous visits". The patient had been in his usual state of health until approximately 4 days prior to admission when he began noticing racing heart as well as lower extremity edema associated with shortness of breath consistent with heart failure symptoms. This morning he feels much better and is found resting comfortably in his bed. He admits that he had not been taking his Lasix because he had been losing weight. He tells me that he had been switched from Brilinta to Plavix 75 mg daily because of a very high co-pay that he cannot afford. He had been taking his losartan at home however he does not remember what dose he supposed to be on. His telemetry shows normal sinus rhythm without any ventricular dysrhythmias. His fluid balance since admission is -1290 cc. His cardiac troponins have been in the indeterminate range with an elevated proBNP at a little bit over 1500. 01/01/20: The patient had an uneventful night. He is found resting in bed comfortably and without chest pain, shortness of breath, PND or orthopnea. His blood pressure is now at goal after losartan was restarted. His fluid balance is only -115 cc however he also had 4 unmeasured voids. His telemetry demonstrates normal sinus rhythm with episodes of tachycardia and no sustained ventricular dysrhythmias. He is still awaiting echocardiogram. Physical exam on 01/01/2020: GENERAL: Pleasant and conversational. Oriented x3 with normal mood. Not in acute distress. Well groomed and well developed. HEENT: Normocephalic, atraumatic. Pupils equal. Sclerae anicteric. Oropharynx moist. NECK: No JVD. No carotid bruits. LUNGS: Clear to auscultation bilaterally. Normal respiratory effort without the use of accessory muscles or intercostal retractions. CARDIOVASCULAR: Regular rate and rhythm, normal S1 and S2 without murmurs, rubs, or gallops. PMI not displaced. EXTREMITIES: No edema bilaterally, no cyanosis, no clubbing. +2 pulses femoral and pedal pulses bilaterally. SKIN: No lesions or rashes. MUSCULOSKELETAL: No chest tenderness to palpation. NEUROLOGIC: Nonfocal. No gross sensory or motor deficits bilateral upper or lower extremities. Outpatient medications per most recent cardiology visit on on 05/19/2019: -Aspirin 81 mg daily, -Brilinta 90 mg twice a day, -Atorvastatin 80 mg daily at bedtime and tolerating these medications without any complaints. -Losartan 25 mg daily. -Furosemide 40 mg once daily. His home weight ranges between 158 and 160 pounds. -Metoprolol succinate 25 mg once daily. He denies lower extremity edema, orthopnea or PND. Cardiac studies: CARDIAC CATHERIZATION Ht: 68 inches Wt: 72.57 kgs BSA: 1.86 Procedure Date: 01/13/2019 PCI ACUTE CLOSURE DURING AMI W/BEN LEFT HEART CATH WITH LV PCI OF INTERRELATED [employer] EDUCATION TEACHER ANY COMBO Other Inferior STEMI CONCLUSIONS Acute [place] due to occlusion of Mid RCA Successful PCI with Drug eluting stent and PTCA to the Mid RCA No Aortic Valve Stenosis LEFT HEART ASSESSMENT Left Ventricular Ejection Fraction: Not assessed (due to elevated Cr) LVEDP: 21 mmHg Mildly elevated Left Ventricular End Diastolic Pressure Valve Assessment: No Aortic Valve Stenosis CORONARY ANGIOGRAPHY DOMINANCE: Right Dominant LEFT MAIN: No significant disease noted LEFT ANTERIOR DECENDING ARTERY: PROX LAD: Mild luminal irregularities less than 30% DIAGONAL 1: 60 % Ostial Stenosis, Vessel is small in size DIAGONAL 2: 80 % Proximal Stenosis (not felt to be a culprit lesion due to inferior EKG changes.) CIRCUMFLEX ARTERY: MID CIRC: appears to be INTERRELATED [employer] EDUCATION TEACHER with faint homocollaterals to two small caliber OM branches. RAMUS: No significant disease noted, Vessel is small in size RIGHT CORONARY ARTERY: MID RCA: 85 % Stenosis RT PLV: No significant disease noted RIGHT PDA: No significant disease noted COLLATERAL FLOW: Collateral flow from RCA to CIRC INTERVENTION PROCEDURE INFORMATION LESION SITE: RCA (Mid) Pre Intervention Stenosis: 85 % Pre intervention VANESSA flow: VANESSA-3 Post Intervention Stenosis: 0 % Post intervention VANESSA flow: VANESSA-3 PROCEDURE: Drug Eluting Stent with pre and post dilatation. Balloon(s) Balloon- Trek 2.5x15 Inflated @ 17 franko for 20 secs Stent(s) deployed @ 20 franko for 20 secs 16atm for 20 secs LESION SITE: Circumflex (Mid) 100%chronic total occlusion: Yes Balloon(s) Balloon- Mini Trek 1.2x6 Echo 01/14/19: Cardiac Echo w/Contrast Cardiac Echo with Contrast Report A complete two-dimensional transthoracic echocardiogram was performed including 2D, M-mode, spectral and tissue Doppler and color flow Doppler. Definity echo enhancing agent used. Definity lot number: [id number]. Contrast was injected into an intravenous site in the left arm. Interpretation Summary Left ventricular systolic function is normal. Left ventricular wall motion is normal. Moderate mitral regurgitation. Trace aortic insufficiency Reason For Visit: ACUTE CONGESTIVE HEART FAILURE,TACHYCARDIA Physical Exam Vital Signs: Temp Pulse Resp BP Pulse Ox 98.5 F 93 14 118/69 98 12/31/19 23:15 01/01/20 02:00 12/31/19 23:15 12/31/19 23:15 12/31/19 23:15 Intake & Output 12/30/19 12/31/19 01/01/20 06:59 06:59 06:59 Intake Total 260 1215 Output Total 1290 400 Balance -1030 815 Weight 69.9 kg 69.9 kg Results Laboratory Results: 12/30/19 19:37 12/30/19 19:37 12/31/19 09:45 Urine Color STRAW Urine Appearance CLEAR Urine pH 6.0 Ur Specific [place] 1.013 Urine Protein 30 H Urine Glucose (UA) NEGATIVE Urine Ketones NEGATIVE Urine Blood SMALL H Urine RBC (Auto) 0 12/30/19 12/31/19 12/31/19 19:37 00:33 00:33 Creatine Kinase 126 CK-MB (CK-2) Troponin I 0.020 0.035 NT-Pro-B Natriuret Pep 1540 H 12/31/19 12/31/19 12/31/19 00:33 05:39 05:39 Creatine Kinase 92 CK-MB (CK-2) 1.58 1.35 Troponin I Cancelled 0.028 NT-Pro-B Natriuret Pep 12/31/19 12/31/19 12:04 12:04 Creatine Kinase 85 CK-MB (CK-2) 1.17 Troponin I 0.022 NT-Pro-B Natriuret Pep Impressions: Chest X-Ray 12/30/19 19:33 IMPRESSION: 1. Bilateral interstitial edema with small pleural effusions, likely congestive heart failure. Chest/Abdomen CTA 12/30/19 22:38 IMPRESSION: Cardiomegaly with no aortic dissection or aneurysm. No pulmonary embolus. Pleural effusions with probable mild pulmonary edema. Assessment & Plan - Diagnosis (1) CAD (coronary artery disease) Is this a current diagnosis for this admission?: Yes Plan: Inferior STEMI in January 2019. Status post 1 xience drug-eluting stent 3.0 mm 28 mm to the mid RCA January 13, 2019. With preserved left ventricular ejection fraction with moderate mitral regurgitation noted on echo; and residual disease and INTER[employer] EDUCATION TEACHER of left circumflex per catheterization report above. Unfortunately the patient had not been able to afford Brilinta therefore he was changed to Plavix 75 mg daily. He remains free of ischemic symptoms. Recommendations: -Continue with current medical management. -Continue with cardiac telemetry. -Echocardiogram as ordered. (2) Acute congestive heart failure Qualifiers: Heart failure type: unspecified Qualified Code(s): I50.9 - Heart failure, unspecified Is this a current diagnosis for this admission?: Yes Plan: The patient has a history of heart failure with preserved ejection fraction and had been managed in the outpatient setting with as needed Lasix however his outpatient leguillon debeader noted on several of his notes that the patient consistently appears to be confused about his medications and never brought them to the office for medication reconciliation. He admits diet as well as not taking his Lasix as instructed. He continues to do well clinically. His fluid balance is only -115 cc however he did have 4 unmeasured voids therefore that number may not be accurate. He is free of heart failure symptoms and there is no more lower extremity edema with clear lungs. Recommendations: -Echocardiogram today to assess for structural heart disease. -Transition IV Lasix to p.o. Lasix. -Restrict fluid intake to 1500 cc daily. -Low sodium diet, less than 1500 mg daily. -Strict intake and output. -Daily weights. -Daily BMP. -Repeat proBNP. -Replace electrolytes as needed. (3) Essential hypertension Is this a current diagnosis for this admission?: Yes Plan: His blood pressure is now at goal. Recommendations: -Continue with current management. (4) Hyperlipidemia, unspecified Qualifiers: Hyperlipidemia type: unspecified Qualified Code(s): E78.5 - Hyperlipidemia, unspecified Is this a current diagnosis for this admission?: Yes Plan: The patient is supposed to be on high intensity statin therapy however he is not receiving anything yet. Recommendations: -Restart Lipitor 80 mg daily. (5) CKD (chronic kidney disease) Is this a current diagnosis for this admission?: Yes Plan: Unknown baseline. He did have a slight bump in his creatinine, we will transition him to p.o. Lasix.
--- NOTE | 2020-01-01 09:33 | RADIOLOGY REPORT (SQ) ---
EXAM DESCRIPTION: CHEST 2 VIEWS IMAGES COMPLETED DATE/TIME: 01/01/2020 9:02 am REASON FOR STUDY: Heart failure COMPARISON: 12/30/2019 TECHNIQUE: Frontal and lateral radiographic views of the chest acquired. NUMBER OF VIEWS: Two view. LIMITATIONS: None. FINDINGS: LUNGS AND PLEURA: Similar interstitial prominence compared to prior. Small unchanged bila teral pleural effusions. No pneumothorax. MEDIASTINUM AND HILAR STRUCTURES: Stable contours. HEART AND VASCULAR STRUCTURES: Stable heart size. BONES: No acute findings. HARDWARE: None in the chest. OTHER: No other significant finding. IMPRESSION: Stable chest. Interstitial changes with small effusions as before. TECHNICAL DOCUMENTATION: JOB ID: [id number] 2010 [employer]- All Rights Reserved Reading location - IP/workstation name: [email or web address]
[2020-01-01] MEDS: ASPIRIN 81 MG TABLET, ENT COATED PO SCH (09:44)
[2020-01-01] MEDS: CLOPIDOGREL BISULFATE 75 MG TABLET PO SCH (09:44)
[2020-01-01] MEDS: FUROSEMIDE INJ/PF 100 MG/10 ML SDV IV SCH ×2 (09:45→17:12)
[2020-01-01] MEDS: INSULIN GLARGINE,HUM.REC.ANLOG 1,000 UNIT/10 ML VIAL SUBCUT SCH (09:45)
[2020-01-01] MEDS: DOCUSATE SODIUM 100 MG CAPSULE PO SCH (09:45)
[2020-01-01] MEDS: CARVEDILOL 6.25 MG TABLET PO SCH ×2 (09:45→21:51)
[2020-01-01] MEDS: LOSARTAN POTASSIUM 25 MG TABLET PO SCH (09:45)
[2020-01-01] MEDS ORDERED: LOSARTAN POTASSIUM 25 MG TABLET PO SCH (10:00)
[2020-01-01] MEDS: INSULIN LISPRO 100 UNIT/ML 3 ML VIAL SUBCUT SCH ×3 (13:12→21:51)
--- NOTE | 2020-01-01 18:00 | PDOC PROGRESS REPORT ---
Subjective Progress Note for:: 01/01/20 Subjective:: He is breathing better. Eager to go home soon. Denies chest pain. Endorses urinating several times yesterday. Reason For Visit: ACUTE CONGESTIVE HEART FAILURE,TACHYCARDIA Physical Exam Vital Signs: Temp Pulse Resp BP Pulse Ox 97.5 F 94 18 132/73 H 98 01/01/20 15:54 01/01/20 15:54 01/01/20 15:54 01/01/20 15:54 01/01/20 15:54 Intake & Output 12/31/19 01/01/20 01/02/20 06:59 06:59 06:59 Intake Total 260 1315 Output Total 1290 400 Balance -1030 915 Weight 69.9 kg 69.8 kg General appearance: PRESENT: no acute distress, cooperative Neck exam: ABSENT: JVD Respiratory exam: PRESENT: crackles, symmetrical, unlabored. ABSENT: tachypnea, wheezes Cardiovascular exam: PRESENT: RRR, +S1, +S2. ABSENT: tachycardia GI/Abdominal exam: PRESENT: soft. ABSENT: rebound, rigid, tenderness Extremities exam: ABSENT: pedal edema Neurological exam: PRESENT: alert, awake, oriented to person, oriented to place, oriented to time Results Laboratory Results: 01/01/20 05:55 01/01/20 05:55 01/01/20 01/01/20 01/01/20 05:55 05:55 05:55 WBC 8.8 RBC 3.74 L Hgb 11.3 L Hct 32.6 L MCV 87 MCH 30.2 MCHC 34.6 RDW 13.6 Plt Count 235 Seg Neutrophils % 71.5 Sodium 136.0 L Potassium 3.9 Chloride 100 Carbon Dioxide 29 Anion Gap 7 BUN 30 H Creatinine 1.63 H Est GFR ( Amer) 51 L Glucose 153 H Calcium 9.0 Magnesium 1.9 Triglycerides 152 H Cholesterol 182.65 LDL Cholesterol Direct 118 H VLDL Cholesterol 30.4 HDL Cholesterol 32 L TSH 1.04 Free T3 pg/mL 3.43 12/30/19 12/31/19 12/31/19 19:37 00:33 00:33 Creatine Kinase 126 CK-MB (CK-2) Troponin I 0.020 0.035 NT-Pro-B Natriuret Pep 1540 H 12/31/19 12/31/19 12/31/19 00:33 05:39 05:39 Creatine Kinase 92 CK-MB (CK-2) 1.58 1.35 Troponin I Cancelled 0.028 NT-Pro-B Natriuret Pep 12/31/19 12/31/19 01/01/20 12:04 12:04 05:55 Creatine Kinase 85 CK-MB (CK-2) 1.17 Troponin I 0.022 NT-Pro-B Natriuret Pep 758 H Impressions: Chest/Abdomen CTA 12/30/19 22:38 IMPRESSION: Cardiomegaly with no aortic dissection or aneurysm. No pulmonary embolus. Pleural effusions with probable mild pulmonary edema. Chest X-Ray 01/01/20 00:00 IMPRESSION: Stable chest. Interstitial changes with small effusions as before. Assessment and Plan - Diagnosis (1) Acute congestive heart failure Qualifiers: Heart failure type: unspecified Qualified Code(s): I50.9 - Heart failure, unspecified Is this a current diagnosis for this admission?: Yes Plan: So far EF is undetermined. TTE is still pending. Unfortunately this was not able to be done today due to weekend restrictions. Continue Lasix. Already received IV dose this morning but discontinued per recommendations of cardiology and will transition to oral Lasix. Maintain on telemetry. Continue fluid restriction strict I's and O's. I did O's documentation from yesterday was inaccurate as was not strictly measured (2) CAD (coronary artery disease) Is this a current diagnosis for this admission?: Yes Plan: Continue atorvastatin and aspirin (3) Essential hypertension Is this a current diagnosis for this admission?: Yes Plan: Losartan. BP is adequate today. Notably his med reconciliation shows that he takes 100 mg of losartan at home. Currently have him on just 50 mg daily. (4) Acute kidney injury superimposed on CKD Is this a current diagnosis for this admission?: Yes Plan: Pulmonary from yesterday likely secondary to diuresis. Will monitor. Check BMP in the morning. - Time Time Spent with patient: Less than 15 minutes Anticipated Discharge Disposition: Home, Self Care Anticipated Discharge: within 24 hours
[2020-01-01] MEDS: ATORVASTATIN CALCIUM 80 MG TABLET PO SCH (21:51)
[2020-01-02] MEDS: HEPARIN SOD (PORCINE) 5,000 UNIT/ML 1 ML VIAL SUBCUT SCH (05:28)
[2020-01-02] MEDS: PANTOPRAZOLE SODIUM 40 MG TABLET.DR PO SCH (05:29)
[2020-01-02 06:33] LABS: ABSOLUTE BASOPHILS # (AUTO) 0.1 10^3/uL (0.0-0.2); ABSOLUTE EOSINOPHILS # (AUTO) 0.3 10^3/uL (0.0-0.6); ABSOLUTE LYMPHOCYTES (AUTO) 1.6 10^3/uL (0.5-4.7); ABSOLUTE MONOCYTES (AUTO) 0.8 10^3/uL (0.1-1.4); ABSOLUTE NEUT (AUTO) 5.1 10^3/uL (1.7-8.2); BASOPHILS % (AUTO) 1.2 % (0-2); EOSINOPHILS % (AUTO) 4.1 % (0-6); HEMATOCRIT 34.9 % (37.9-51.0); HEMOGLOBIN 11.9 g/dL (13.5-17.0); LYMPHOCYTES % (AUTO) 20.5 % (13-45); MEAN CORPUSCULAR HEMOGLOBIN 29.7 pg (27.0-33.4); MEAN CORPUSCULAR HGB CONC 34.1 g/dL (32.0-36.0); MEAN CORPUSCULAR VOLUME 87 fl (80-97); MONOCYTES % (AUTO) 10.1 % (3-13); PLATELET COUNT 266 10^3/uL (150-450); RED CELL DISTRIBUTION WIDTH 13.5 % (11.5-14.0); SEGMENTED NEUTROPHILS % (AUTO) 64.1 % (42-78); TOTAL CELLS COUNTED % (AUTO) 100 %
[2020-01-02 06:51] LABS: ANION GAP 11 (5-19); BLOOD UREA NITROGEN 32 mg/dL (7-20); CALCIUM 8.9 mg/dL (8.4-10.2); CARBON DIOXIDE 28 mmol/L (22-30); CHLORIDE 100 mmol/L (98-107); GLUCOSE 238 mg/dL (75-110); POTASSIUM 3.8 mmol/L (3.6-5.0)
[2020-01-02] MEDS ORDERED: PROMETHAZINE HCL INJ 25 MG/1 ML VIAL IV PRN (08:00)
[2020-01-02] MEDS: INSULIN LISPRO 100 UNIT/ML 3 ML VIAL SUBCUT SCH ×2 (08:40→11:57)
[2020-01-02] MEDS ORDERED: FUROSEMIDE 40 MG TABLET PO SCH (10:00)
--- NOTE | 2020-01-02 10:36 | PDOC PROGRESS REPORT ---
Subjective Progress Note for:: 01/02/20 Subjective:: MIGUEL MACARIO JR is a 69 year old male history of CAD (inferior STEMI, s/p BEN to mRCA 01/13/19, BAGGER MEAT mLCx), insulin requiring type 2 diabetes mellitus, hypertension, hyperlipidemia who is consulted to our service for evaluation of heart failure. He is followed by my partner in the office, Dr. Porter who notes the patient's consistent "confusion over medication changes made at the last visit. Even though the patient brings handwritten instructions that were provided to him at last visit he did not follow them correctly. The patient was to start carvedilol in place of metoprolol and notes starting carvedilol than stopping and restarting metoprolol which is unclear. I also asked the patient to use Lasix on an as-needed basis for weight gain of which she explains there was weight gain however his weight is lower today than at previous visits". The patient had been in his usual state of health until approximately 4 days prior to admission when he began noticing racing heart as well as lower extremity edema associated with shortness of breath consistent with heart failure symptoms. This morning he feels much better and is found resting comfortably in his bed. He admits that he had not been taking his Lasix because he had been losing weight. He tells me that he had been switched from Brilinta to Plavix 75 mg daily because of a very high co-pay that he cannot afford. He had been taking his losartan at home however he does not remember what dose he supposed to be on. His telemetry shows normal sinus rhythm without any ventricular dysrhythmias. His fluid balance since admission is -1290 cc. His cardiac troponins have been in the indeterminate range with an elevated proBNP at a little bit over 1500. 01/02/20: The patient had an uneventful night. He is found resting in bed comfortably and without chest pain, shortness of breath, PND or orthopnea. His blood pressure is very close to his goal. His proBNP has decreased from 100,[phone]. His telemetry demonstrates normal sinus rhythm with episodes of sinus tachycardia and no sustained ventricular dysrhythmias. He is still awaiting echocardiogram. Physical exam on 01/02/2020: GENERAL: Pleasant and conversational. Oriented x3 with normal mood. Not in acute distress. Well groomed and well developed. HEENT: Normocephalic, atraumatic. Pupils equal. Sclerae anicteric. Or opharynx moist. NECK: No JVD. No carotid bruits. LUNGS: Clear to auscultation bilaterally. Normal respiratory effort without the use of accessory muscles or intercostal retractions. CARDIOVASCULAR: Regular rate and rhythm, normal S1 and S2 without murmurs, rubs, or gallops. PMI not displaced. EXTREMITIES: No edema bilaterally, no cyanosis, no clubbing. +2 pulses femoral and pedal pulses bilaterally. SKIN: No lesions or rashes. MUSCULOSKELETAL: No chest tenderness to palpation. NEUROLOGIC: Nonfocal. No gross sensory or motor deficits bilateral upper or lower extremities. Outpatient medications per most recent cardiology visit on on 05/19/2019: -Aspirin 81 mg daily, -Brilinta 90 mg twice a day, -Atorvastatin 80 mg daily at bedtime and tolerating these medications without any complaints. -Losartan 25 mg daily. -Furosemide 40 mg once daily. His home weight ranges between 158 and 160 pounds. -Metoprolol succinate 25 mg once daily. He denies lower extremity edema, orthopnea or PND. Cardiac studies: CARDIAC CATHERIZATION Ht: 68 inches Wt: 72.57 kgs BSA: 1.86 Procedure Date: 01/13/2019 PCI ACUTE CLOSURE DURING AMI W/BEN LEFT HEART CATH WITH LV PCI OF BAGGER MEAT ANY COMBO Other Inferior STEMI CONCLUSIONS Acute MS due to occlusion of Mid RCA Successful PCI with Drug eluting stent and PTCA to the Mid RCA No Aortic Valve Stenosis LEFT HEART ASSESSMENT Left Ventricular Ejection Fraction: Not assessed (due to elevated Cr) LVEDP: 21 mmHg Mildly elevated Left Ventricular End Diastolic Pressure Valve Assessment: No Aortic Valve Stenosis CORONARY ANGIOGRAPHY DOMINANCE: Right Dominant LEFT MAIN: No significant disease noted LEFT ANTERIOR DECENDING ARTERY: PROX LAD: Mild luminal irregularities less than 30% DIAGONAL 1: 60 % Ostial Stenosis, Vessel is small in size DIAGONAL 2: 80 % Proximal Stenosis (not felt to be a culprit lesion due to inferior EKG changes.) CIRCUMFLEX ARTERY: MID CIRC: appears to be BAGGER MEAT with faint homocollaterals to two small caliber OM branches. RAMUS: No significant disease noted, Vessel is small in size RIGHT CORONARY ARTERY: MID RCA: 85 % Stenosis RT PLV: No significant disease noted RIGHT PDA: No significant disease noted COLLATERAL FLOW: Collateral flow from RCA to CIRC INTERVENTION PROCEDURE INFORMATION LESION SITE: RCA (Mid) Pre Intervention Stenosis: 85 % Pre intervention VANESSA flow: VANESSA-3 Post Intervention Stenosis: 0 % Post intervention VANESSA flow: VANESSA-3 PROCEDURE: Drug Eluting Stent with pre and post dilatation. Balloon(s) Balloon- Trek 2.5x15 Inflated @ 17 franko for 20 secs Stent(s) deployed @ 20 franko for 20 secs 16atm for 20 secs LESION SITE: Circumflex (Mid) 100%chronic total occlusion: Yes Balloon(s) Balloon- Mini Trek 1.2x6 Echo 01/14/19: Cardiac Echo w/Contrast Cardiac Echo with Contrast Report A complete two-dimensional transthoracic echocardiogram was performed including 2D, M-mode, spectral and tissue Doppler and color flow Doppler. Definity echo enhancing agent used. Definity lot number: [id number]. Contrast was injected into an intravenous site in the left arm. Interpretation Summary Left ventricular systolic function is normal. Left ventricular wall motion is normal. Moderate mitral regurgitation. Trace aortic insufficiency Reason For Visit: ACUTE CONGESTIVE HEART FAILURE,TACHYCARDIA Physical Exam Vital Signs: Temp Pulse Resp BP Pulse Ox 98.0 F 98 20 159/76 H 98 01/02/20 08:07 01/02/20 08:07 01/02/20 03:10 01/02/20 08:07 01/02/20 08:07 Intake & Output 01/01/20 01/02/20 01/03/20 06:59 06:59 06:59 Intake Total 1315 450 Output Total 400 290 Balance 915 160 Weight 69.8 kg 68.2 kg Results Laboratory Results: 01/02/20 05:47 01/02/20 05:47 01/02/20 01/02/20 05:47 05:47 WBC 8.0 RBC 4.00 L Hgb 11.9 L Hct 34.9 L MCV 87 MCH 29.7 MCHC 34.1 RDW 13.5 Plt Count 266 Seg Neutrophils % 64.1 Sodium 138.8 Potassium 3.8 Chloride 100 Carbon Dioxide 28 Anion Gap 11 BUN 32 H Creatinine 1.61 H Est GFR ( Amer) 52 L Glucose 238 H Calcium 8.9 Magnesium 2.0 12/30/19 12/31/19 12/31/19 19:37 00:33 00:33 Creatine Kinase 126 CK-MB (CK-2) Troponin I 0.020 0.035 NT-Pro-B Natriuret Pep 1540 H 12/31/19 12/31/19 12/31/19 00:33 05:39 05:39 Creatine Kinase 92 CK-MB (CK-2) 1.58 1.35 Troponin I Cancelled 0.028 NT-Pro-B Natriuret Pep 12/31/19 12/31/19 01/01/20 12:04 12:04 05:55 Creatine Kinase 85 CK-MB (CK-2) 1.17 Troponin I 0.022 NT-Pro-B Natriuret Pep 758 H 01/02/20 05:47 Creatine Kinase CK-MB (CK-2) Troponin I NT-Pro-B Natriuret Pep 657 H Impressions: Chest/Abdomen CTA 12/30/19 22:38 IMPRESSION: Cardiomegaly with no aortic dissection or aneurysm. No pulmonary embolus. Pleural effusions with probable mild pulmonary edema. Chest X-Ray 01/01/20 00:00 IMPRESSION: Stable chest. Interstitial changes with small effusions as before. 01/02/20 05:47 01/02/20 05:47 MCV 87 fl (80-97) 01/02/20 05:47 MCH 29.7 pg (27.0-33.4) 01/02/20 05:47 MCHC 34.1 g/dL (32.0-36.0) 01/02/20 05:47 RDW 13.5 % (11.5-14.0) 01/02/20 05:47 Seg Neutrophils % 64.1 % (42-78) 01/02/20 05:47 Chloride 100 mmol/L (98-107) 01/02/20 05:47 Carbon Dioxide 28 mmol/L (22-30) 01/02/20 05:47 Anion Gap 11 (5-19) 01/02/20 05:47 Est GFR ( Amer) 52 (>60) L 01/02/20 05:47 Glucose 238 mg/dL (75-110) H 01/02/20 05:47 Calcium 8.9 mg/dL (8.4-10.2) 01/02/20 05:47 Magnesium 2.0 mg/dL (1.6-2.3) 01/02/20 05:47 Total Bilirubin 0.6 mg/dL (0.2-1.3) 12/30/19 19:37 AST 29 U/L (17-59) 12/30/19 19:37 Alkaline Phosphatase 66 U/L (38-126) 12/30/19 19:37 Total Protein 7.9 g/dL (6.3-8.2) 12/30/19 19:37 Albumin 4.3 g/dL (3.5-5.0) 12/30/19 19:37 Triglycerides 152 mg/dL (<150) H 01/01/20 05:55 Cholesterol 182.65 mg/dL (0-200) 01/01/20 05:55 LDL Cholesterol Direct 118 mg/dL (<100) H 01/01/20 05:55 VLDL Cholesterol 30.4 mg/dL (10-31) 01/01/20 05:55 HDL Cholesterol 32 mg/dL (>40) L 01/01/20 05:55 TSH 1.04 uIU/mL (0.47-4.68) 01/01/20 05:55 Free T3 pg/mL 3.43 pg/mL (2.77-5.27) 01/01/20 05:55 Urine Color STRAW 12/31/19 09:45 Urine Appearance CLEAR 12/31/19 09:45 Urine pH 6.0 (5.0-9.0) 12/31/19 09:45 Ur Specific [place] 1.013 12/31/19 09:45 Urine Protein 30 mg/dL (NEGATIVE) H 12/31/19 09:45 Urine Glucose (UA) NEGATIVE mg/dL (NEGATIVE) 12/31/19 09:45 Urine Ketones NEGATIVE mg/dL (NEGATIVE) 12/31/19 09:45 Urine Blood SMALL (NEGATIVE) H 12/31/19 09:45 Urine RBC (Auto) 0 /HPF 12/31/19 09:45 12/30/19 12/31/19 12/31/19 19:37 00:33 00:33 Creatine Kinase 126 CK-MB (CK-2) Troponin I 0.020 0.035 NT-Pro-B Natriuret Pep 1540 H 12/31/19 12/31/19 12/31/19 00:33 05:39 05:39 Creatine Kinase 92 CK-MB (CK-2) 1.58 1.35 Troponin I Cancelled 0.028 NT-Pro-B Natriuret Pep 12/31/19 12/31/19 01/01/20 12:04 12:04 05:55 Creatine Kinase 85 CK-MB (CK-2) 1.17 Troponin I 0.022 NT-Pro-B Natriuret Pep 758 H 01/02/20 05:47 Creatine Kinase CK-MB (CK-2) Troponin I NT-Pro-B Natriuret Pep 657 H Current Medication List Generic Name Dose Route Start Last Admin Trade Name Freq PRN Reason Stop Dose Admin Acetaminophen 650 mg 12/31/19 01:18 Tylenol 325 Mg Tablet PO 01/30/20 01:17 Q4HP PRN pain or temp greater than 101F Al Hydrox/Mg Hydrox/Simethicone 30 ml 12/31/19 01:18 Maalox Plus Susp 30 Udcup PO 01/30/20 01:17 Q4HP PRN HEARTBURN Aspirin 81 mg 12/31/19 10:00 01/01/20 09:44 Ecotrin 81 Mg Ec Tablet PO 01/30/20 09:59 81 mg DAILY ELLEN Administration Atorvastatin Calcium 80 mg 12/31/19 22:00 01/01/20 21:51 Lipitor 80 Mg Tablet PO 01/30/20 21:59 80 mg QHS ELLEN Administration Carvedilol 6.25 mg 12/31/19 01:45 01/01/20 21:51 Coreg 6.25 Mg Tablet PO 01/30/20 01:44 6.25 mg Q12 ELLEN Administration Clopidogrel Bisulfate 75 mg 12/31/19 10:00 01/01/20 09:44 Plavix 75 Mg Tablet PO 01/30/20 09:59 75 mg DAILY ELLEN Administration Dextrose 12.5 gm 12/31/19 01:47 Dextrose Inj 50% Syringe (25 Gm/50 Ml) IV 01/30/20 01:46 PRN PRN FOR BG 50-69 IN ALERT PATIENT Protocol Dextrose 25 gm 12/31/19 01:47 Dextrose Inj 50% Syringe (25 Gm/50 Ml) IV 01/30/20 01:46 PRN PRN PER PROTOCOL Protocol Docusate Sodium 100 mg 12/31/19 10:00 01/01/20 09:45 Colace 100 Mg Capsule PO 01/30/20 09:59 100 mg DAILY ELLEN Administration Furosemide 40 mg 01/02/20 10:00 Lasix 40 Mg Tablet PO 02/01/20 09:59 DAILY ELLEN Glucagon 1 mg 12/31/19 01:47 Glucagen Inj 1 Mg Vial IM 01/30/20 01:46 PRN PRN Evaluate for BG < 70 Protocol Glucose 15 gm 12/31/19 01:47 Glutose 40% Gel 15 Gm Tube PO 01/30/20 01:46 PRN PRN FOR BG 50-69 IN ALERT PATIENT Protocol Glucose 30 gm 12/31/19 01:47 Glutose 40% Gel 15 Gm Tube PO 01/30/20 01:46 PRN PRN FOR BG < 50 IN ALERT PATIENT Protocol Guaifenesin 200 mg 12/31/19 01:49 Robitussin Syrup 200 Mg/10 Ml Ud Cup PO 01/30/20 01:48 Q4HP PRN COUGH Heparin Sodium (Porcine) 5,000 unit 12/31/19 06:00 01/02/20 05:28 Heparin Inj 5,000 Units/Ml 1 Ml Vial SUBCUT 01/30/20 05:59 5,000 unit Q8 ELLEN Administration Insulin Glargine 25 unit 01/01/20 10:00 01/01/20 09:45 Lantus Insulin 100 Unit/1 Ml 10 Ml SUBCUT 01/31/20 09:59 25 unit DAILY ELLEN Administration Insulin Human Lispro 0 - 12 unit 01/01/20 11:00 01/02/20 08:40 Humalog Insulin 100 Unit/1 Ml 3 Ml Vial SUBCUT 01/31/20 10:59 2 unit ACHS ELLEN Administration Protocol Losartan Potassium 50 mg 01/01/20 10:00 01/01/20 09:45 Cozaar 25 Mg Tablet PO 01/31/20 09:59 50 mg DAILY ELLEN Administration Magnesium Hydroxide 30 ml 12/31/19 01:18 Milk Of Magnesia 30 Ml Udcup PO 01/30/20 01:17 HSP PRN FOR CONSTIPATION Melatonin 5 mg 12/31/19 01:47 Melatonin 5 Mg Tablet PO 01/30/20 01:46 HSP PRN SLEEP OR INSOMNIA Metoprolol Tartrate 5 mg 12/31/19 01:47 Lopressor Inj/Pf 5 Mg/5 Ml Sdv IV 01/30/20 01:46 Q4HP PRN Give For Sbp > 160 / Dbp > 100 Pantoprazole Sodium 40 mg 12/31/19 06:00 01/02/20 05:[address] Tablet PO 01/30/20 05:59 40 mg Q6AM ELLEN Administration Promethazine HCl 12.5 mg 01/02/20 08:00 Phenergan Inj 25 Mg/1 Ml Vial IV 01/30/20 01:17 Q4HP PRN FOR NAUSEA/VOMITING Sodium Chloride 2.5 ml 12/31/19 06:00 01/02/20 05:28 Saline Flush 2.5 Ml Monoject Prefil Syrin IV 01/30/20 05:59 2.5 ml Q8 ELLEN Administration Discontinued Medications Generic Name Dose Route Start Last Admin Trade Name Freq PRN Reason Stop Dose Admin Furosemide 40 mg 12/30/19 23:53 12/31/19 00:05 Lasix Inj/Pf 40 Mg/4 Ml Sdv IV 12/30/19 23:54 40 mg NOW ONE Administration Furosemide 40 mg 12/31/19 06:00 12/31/19 06:27 Lasix Inj/Pf 40 Mg/4 Ml Sdv IV 01/30/20 05:59 40 mg Q6 ELLEN Administration Furosemide 60 mg 12/31/19 18:00 01/01/20 17:12 Lasix Inj/Pf 100 Mg/10 Ml Sdv IV 01/30/20 17:59 60 mg BID ELLEN Administration Insulin Human Regular 0 - 15 unit 12/31/19 08:00 01/01/20 08:00 Humulin R (Pyxis) Insulin 100 Unit/Ml 3ml SUBCUT 01/30/20 07:59 Not Given ACHS ELLEN Protocol Lorazepam 1 mg 12/31/19 01:47 Ativan Inj 2 Mg/1 Ml Vial IV 01/07/20 01:46 Q4HP PRN ANXIETY/AGITATION Losartan Potassium 25 mg 12/31/19 11:34 12/31/19 12:39 Cozaar 25 Mg Tablet PO 12/31/19 11:35 25 mg NOW ONE Administration Losartan Potassium 25 mg 01/01/20 10:00 Cozaar 25 Mg Tablet PO 01/31/20 09:59 DAILY ELLEN Magnesium Hydroxide 30 ml 12/31/19 01:47 Milk Of Magnesia 30 Ml Udcup PO 01/30/20 01:46 HSP PRN FOR CONSTIPATION Morphine Sulfate 2 mg 12/31/19 01:47 Morphine 10 Mg/Ml Inj IV 01/07/20 01:46 Q1HP PRN Acute Severe Dyspnea Morphine Sulfate 2 mg 12/31/19 02:05 Morphine 10 Mg/Ml Inj IV 01/07/20 02:04 Q2HP PRN PAIN SCALE 2/5 Morphine Sulfate 3 mg 12/31/19 02:05 Morphine 10 Mg/Ml Inj IV 01/07/20 02:04 Q2HP PRN PAIN SCALE 3-4/5 Morphine Sulfate 4 mg 12/31/19 02:05 Morphine 10 Mg/Ml Inj IV 01/07/20 02:04 Q2HP PRN PAIN SCALE 5/5 Morphine Sulfate 2 mg 12/31/19 11:35 Morphine 10 Mg/Ml Inj IV 01/07/20 11:31 Q6HP PRN FOR BREAKTHROUGH PAIN Nitroglycerin 1 each 12/30/19 23:53 12/31/19 00:05 Nitro-Dur 5 Mg (0.2 Mg/Hr) Transdermal Patch TD 12/30/19 23:54 1 each NOW ONE Administration Nitroglycerin 1 gm 12/31/19 06:00 12/31/19 06:27 Nitrol 2% Ointment 1gm Packet TP 01/30/20 05:59 1 gm Q6 ELLEN Administration Promethazine HCl 12.5 mg 12/31/19 01:18 Phenergan Inj 25 Mg/1 Ml Vial IV 01/30/20 01:17 Q4HP PRN FOR NAUSEA/VOMITING Assessment & Plan - Diagnosis (1) CAD (coronary artery disease) Is this a current diagnosis for this admission?: Yes Plan: Inferior STEMI in January 2019. Status post 1 xience drug-eluting stent 3.0 mm 28 mm to the mid RCA January 13, 2019. With preserved left ventricular ejection fraction with moderate mitral regurgitation noted on echo; and residual disease and BAGGER MEAT of left circumflex per catheterization report above. Unfortunately the patient had not been able to afford Brilinta therefore he was changed to Plavix 75 mg daily. He remains free of ischemic symptoms. It is not absolutely neces claudia to keep the patient in the hospital for his echocardiogram, it can be done as an outpatient in our office. Recommendations: -Continue with current medical management. -Continue with cardiac telemetry while hospitalized. -Echocardiogram as ordered. -The patient may be discharged from the cardiovascular standpoint. He will be followed up by Dr. Porter on 01/05/2020 at 1100. (2) Acute congestive heart failure Qualifiers: Heart failure type: unspecified Qualified Code(s): I50.9 - Heart failure, unspecified Is this a current diagnosis for this admission?: Yes Plan: The patient is now euvolemic with a significantly improved proBNP. He remains asymptomatic. We had a very long and detailed discussion regarding the importance of diet and medication compliance. Given his sinus tachycardia I will increase his Coreg. He is ready to discharge from the cardiovascular standpoint and will follow-up with Dr. Porter on 01/05/2020 at 1100. Recommendations: -Increase carvedilol to 12.5 mg twice daily. -The patient will follow up with Dr. Porter on 01/05/2020 at 1100. -The patient may be discharged from the cardiovascular standpoint. (3) Essential hypertension Is this a current diagnosis for this admission?: Yes Plan: His blood pressure is trending up. Recommendations: -Increase Coreg to 12.5 mg twice daily. -Follow-up with Dr. Porter as scheduled. (4) Hyperlipidemia, unspecified Qualifiers: Hyperlipidemia type: unspecified Qualified Code(s): E78.5 - Hyperlipidemia, unspecified Is this a current diagnosis for this admission?: Yes Plan: The patient is supposed to be on high intensity statin therapy however he is not receiving anything yet. Recommendations: -Continue with Lipitor 80 mg daily. (5) CKD (chronic kidney disease) Is this a current diagnosis for this admission?: Yes Plan: The patient will follow-up with his primary care provider.
[2020-01-02] MEDS: DOCUSATE SODIUM 100 MG CAPSULE PO SCH (11:49)
[2020-01-02] MEDS: CARVEDILOL 6.25 MG TABLET PO SCH (11:51)
[2020-01-02] MEDS: CLOPIDOGREL BISULFATE 75 MG TABLET PO SCH (11:52)
[2020-01-02] MEDS: INSULIN GLARGINE,HUM.REC.ANLOG 1,000 UNIT/10 ML VIAL SUBCUT SCH (11:52)
[2020-01-02] MEDS: ASPIRIN 81 MG TABLET, ENT COATED PO SCH (11:52)
[2020-01-02] MEDS: LOSARTAN POTASSIUM 25 MG TABLET PO SCH (11:52)
--- NOTE | 2020-01-02 12:15 | PDOC DISCHARGE SUMMARY ---
Impression - Admit/DC Date/PCP Admission Date/Primary Care Provider: 12/31/19 00:55 VIOLETA LOVING MD Discharge Date: 01/02/20 - Discharge Diagnosis (1) Acute congestive heart failure Is this a current diagnosis for this admission?: Yes (2) CAD (coronary artery disease) Is this a current diagnosis for this admission?: Yes (3) Essential hypertension Is this a current diagnosis for this admission?: Yes (4) Acute kidney injury superimposed on CKD Is this a current diagnosis for this admission?: Yes - Additional Information Resuscitation Status: Full Code Discharge Diet: Cardiac, Diabetic Discharge Activity: Activity As Tolerated, Balance Activity w/Rest, Weigh Daily Referrals: VIOLETA LOVING MD [Primary Care Provider] - Follow up as needed RIC SPANN MD [ACTIVE PROVISIONAL STAFF] - 01/05/20 11:00 am Prescriptions: Carvedilol [Coreg 12.5 mg Tablet] 12.5 mg PO Q12 #60 tablet Losartan Potassium [Cozaar 25 mg Tablet] 50 mg PO DAILY #60 tablet Furosemide [Lasix 40 mg Tablet] 40 mg PO DAILY #30 tablet Home Medications: Aspirin [Ecotrin 81 mg EC Tablet] 81 mg PO DAILY 12/31/19 Atorvastatin Calcium [Lipitor 80 mg Tablet] 80 mg PO QHS 12/31/19 Clopidogrel Bisulfate [Plavix 75 mg Tablet] 75 mg PO DAILY 12/31/19 Insulin Glargine/Lixisenatide [Soliqua 100 Unit-33 Mcg/ml Pen] 26 unit SUBCUT DAILY 12/31/19 Metformin HCl [Metformin HCl ER] 1,000 mg PO BID 12/31/19 Carvedilol [Coreg 12.5 mg Tablet] 12.5 mg PO Q12 #60 tablet 01/02/20 Furosemide [Lasix 40 mg Tablet] 40 mg PO DAILY #30 tablet 01/02/20 Losartan Potassium [Cozaar 25 mg Tablet] 50 mg PO DAILY #60 tablet 01/02/20 History of Present Illiness History of Present Illness: Cording to admitting provider: MIGUEL MACARIO JR is a 69 year old male who presents the emergency room with a 4-day history of dyspnea. He admits progressively worsening dyspnea over the last 4 days becoming severe over the last 24 hours prior to presentation. His dyspnea is worsened by exertion. His dyspnea has been accompanied by orthopnea and associated with increased swelling in his lower extremities over the last 24 hours. He denies other associated or accompanying signs and symptoms. He denies prior similar episodes. He has not identified any additional aggravating or ameliorating factors for his dyspnea. In the emergency room he was found to have a BNP of 1540 and a chest x-ray demonstrating congestive heart failure. Patient was subsequently admitted to the hospital for further evaluation and treatment on the heart failure protocol in the [facility]. Hospital Course Hospital Course: Patient was admitted to the hospital with complaint of shortness of breath, orthopnea and showing evidence of heart failure. Heart failure evidenced by chest x-ray findings as well as elevated BNP, orthopnea, PND. He was also noted to have some bilateral pleural effusions. CTA of the chest showed no evidence of pulmonary embolism but did show pulmonary vascular congestion as well as bilateral pleural effusion. Patient was started on treatment for acute conges tive heart failure especially as he states he does not have a history of CHF even though he was already on Coreg and losartan. Patient was diuresed effectively with IV Lasix and has been on room air. His BNP has trended down. Telemetry has been reviewed which did not show any evidence of atrial fibrillation. He was seen by cardiology while in the hospital was recommended increasing his Coreg dose to 12.5 mg twice daily. Patient currently on losartan 50 mg which has been decreased from 100 mg to accommodate room for increase/optimization of beta-kelli. Echocardiogram was done today. I have reviewed the preliminary read which shows an EF of less than 35% which is suggestive of acute systolic CHF. Of note there is no final read on the echocardiogram yet by the ppa teacher but patient has been cleared for discharge by cardiology and he has been set up to follow-up with Dr. Spann in the office in 3 days for continued management of his congestive heart failure and to review the echocardiogram findings. Physical Exam Vital Signs: Temp Pulse Resp BP Pulse Ox 98.0 F 98 20 159/76 H 98 01/02/20 08:07 01/02/20 08:07 01/02/20 03:10 01/02/20 08:07 01/02/20 08:07 Intake & Output 01/01/20 01/02/20 01/03/20 06:59 06:59 06:59 Intake Total 1315 450 Output Total 400 290 Balance 915 160 Weight 69.8 kg 68.2 kg General appearance: PRESENT: no acute distress, cooperative Respiratory exam: PRESENT: crackles, symmetrical, unlabored. ABSENT: accessory muscle use, retraction, tachypnea Cardiovascular exam: PRESENT: +S1, +S2. ABSENT: tachycardia Neurological exam: PRESENT: alert, awake, oriented to person, oriented to place, oriented to time, oriented to situation Results Laboratory Results: WBC 8.0 10^3/uL (4.0-10.5) 01/02/20 05:47 RBC 4.00 10^6/uL (4.35-5.55) L 01/02/20 05:47 Hgb 11.9 g/dL (13.5-17.0) L 01/02/20 05:47 Hct 34.9 % (37.9-51.0) L 01/02/20 05:47 MCV 87 fl (80-97) 01/02/20 05:47 MCH 29.7 pg (27.0-33.4) 01/02/20 05:47 MCHC 34.1 g/dL (32.0-36.0) 01/02/20 05:47 RDW 13.5 % (11.5-14.0) 01/02/20 05:47 Plt Count 266 10^3/uL (150-450) 01/02/20 05:47 Lymph % (Auto) 20.5 % (13-45) 01/02/20 05:47 Heard % (Auto) 10.1 % (3-13) 01/02/20 05:47 Eos % (Auto) 4.1 % (0-6) 01/02/20 05:47 Baso % (Auto) 1.2 % (0-2) 01/02/20 05:47 Absolute Neuts (auto) 5.1 10^3/uL (1.7-8.2) 01/02/20 05:47 Absolute Lymphs (auto) 1.6 10^3/uL (0.5-4.7) 01/02/20 05:47 Absolute Monos (auto) 0.8 10^3/uL (0.1-1.4) 01/02/20 05:47 Absolute Eos (auto) 0.3 10^3/uL (0.0-0.6) 01/02/20 05:47 Absolute Basos (auto) 0.1 10^3/uL (0.0-0.2) 01/02/20 05:47 Seg Neutrophils % 64.1 % (42-78) 01/02/20 05:47 D-Dimer 0.72 ug/mL (0.00-0.50) H 12/30/19 19:37 Sodium 138.8 mmol/L (137-145) 01/02/20 05:47 Potassium 3.8 mmol/L (3.6-5.0) 01/02/20 05:47 Chloride 100 mmol/L (98-107) 01/02/20 05:47 Carbon Dioxide 28 mmol/L (22-30) 01/02/20 05:47 Anion Gap 11 (5-19) 01/02/20 05:47 BUN 32 mg/dL (7-20) H 01/02/20 05:47 Creatinine 1.61 mg/dL (0.52-1.25) H 01/02/20 05:47 Est GFR ( Amer) 52 (>60) L 01/02/20 05:47 Est GFR (MDRD) Non-Af 43 (>60) L 01/02/20 05:47 Glucose 238 mg/dL (75-110) H 01/02/20 05:47 POC Glucose 306 mg/dL (70-110) H 01/02/20 11:48 Hemoglobin A1c % 8.8 % (4.7-6.0) H 01/01/20 05:55 Calcium 8.9 mg/dL (8.4-10.2) 01/02/20 05:47 Magnesium 2.0 mg/dL (1.6-2.3) 01/02/20 05:47 Total Bilirubin 0.6 mg/dL (0.2-1.3) 12/30/19 19:37 Direct Bilirubin 0.0 mg/dL (0.0-0.4) 12/30/19 19:37 Neonat Total Bilirubin Not Reportable 12/30/19 19:37 Neonat Direct Bilirubin Not Reportable 12/30/19 19:37 Neonat Indirect Bili Not Reportable 12/30/19 19:37 AST 29 U/L (17-59) 12/30/19 19:37 ALT 27 U/L (<50) 12/30/19 19:37 Alkaline Phosphatase 66 U/L (38-126) 12/30/19 19:37 Creatine Kinase 85 U/L (55-170) 12/31/19 12:04 CK-MB (CK-2) 1.17 ng/mL (<4.55) 12/31/19 12:04 Troponin I 0.022 ng/mL 12/31/19 12:04 NT-Pro-B Natriuret Pep 657 pg/mL (<125) H 01/02/20 05:47 Total Protein 7.9 g/dL (6.3-8.2) 12/30/19 19:37 Albumin 4.3 g/dL (3.5-5.0) 12/30/19 19:37 Triglycerides 152 mg/dL (<150) H 01/01/20 05:55 Cholesterol 182.65 mg/dL (0-200) 01/01/20 05:55 LDL Cholesterol Direct 118 mg/dL (<100) H 01/01/20 05:55 VLDL Cholesterol 30.4 mg/dL (10-31) 01/01/20 05:55 HDL Cholesterol 32 mg/dL (>40) L 01/01/20 05:55 TSH 1.04 uIU/mL (0.47-4.68) 01/01/20 05:55 Free T3 pg/mL 3.43 pg/mL (2.77-5.27) 01/01/20 05:55 Urine Color STRAW 12/31/19 09:45 Urine Appearance CLEAR 12/31/19 09:45 Urine pH 6.0 (5.0-9.0) 12/31/19 09:45 Ur Specific [place] 1.013 12/31/19 09:45 Urine Protein 30 mg/dL (NEGATIVE) H 12/31/19 09:45 Urine Glucose (UA) NEGATIVE mg/dL (NEGATIVE) 12/31/19 09:45 Urine Ketones NEGATIVE mg/dL (NEGATIVE) 12/31/19 09:45 Urine Blood SMALL (NEGATIVE) H 12/31/19 09:45 Urine Nitrite (Reflex) NEGATIVE (NEGATIVE) 12/31/19 09:45 Urine Bilirubin NEGATIVE (NEGATIVE) 12/31/19 09:45 Urine Urobilinogen NEGATIVE mg/dL (<2.0) 12/31/19 09:45 Leukocyte Esterase Rfl NEGATIVE (NEGATIVE) 12/31/19 09:45 Urine RBC (Auto) 0 /HPF 12/31/19 09:45 Urine WBC (Reflex) < 1 /HPF 12/31/19 09:45 Urine Mucus (Auto) RARE /LPF 12/31/19 09:45 Urine Ascorbic Acid NEGATIVE (NEGATIVE) 12/31/19 09:45 12/30/19 12/31/19 12/31/19 19:37 00:33 00:33 CK-MB (CK-2) 1.58 Troponin I 0.020 0.035 Cancelled NT-Pro-B Natriuret Pep 1540 H 12/31/19 12/31/19 01/01/20 05:39 12:04 05:55 CK-MB (CK-2) 1.35 1.17 Troponin I 0.028 0.022 NT-Pro-B Natriuret Pep 758 H 01/02/20 05:47 CK-MB (CK-2) Troponin I NT-Pro-B Natriuret Pep 657 H Impressions: Chest X-Ray 12/30/19 19:33 IMPRESSION: 1. Bilateral interstitial edema with small pleural effusions, likely congestive heart failure. Chest/Abdomen CTA 12/30/19 22:38 IMPRESSION: Cardiomegaly with no aortic dissection or aneurysm. No pulmonary embolus. Pleural effusions with probable mild pulmonary edema. Chest X-Ray 01/01/20 00:00 IMPRESSION: Stable chest. Interstitial changes with small effusions as before. Plan Time Spent: Less than 30 Minutes Stroke Is this a Stroke Patient?: No Acute Heart Failure - Is this a Heart Failure Patient?: Yes Documentation of LVEF assessment?: Yes LVEF: LVEF Less Than or Equal to 35% - Preliminary assessment showing EF less than 35%. Patient to follow-up with ppa teacher in 3 days to discuss final results of the echocardiogram. Anticoagulant Therapy: N/A Discharged on Evidence-Based Beta Blockers: Yes Discharged on ARNI?: No-Document Contraindications Reason(s) not discharged on ARNI: DAMARIS, New onset heart failure Discharged on ARB?: Yes For LVEF <35%, discharged on Aldosterone Antagonist?: No-document contraincations Reason(s) not discharged on Aldosterone Antagonist: Other - Beta-kelli and losartan have not yet been optimized. BP cannot tolerate at this point. Aldosterone Antagonist Reason - Other: soft BP Follow-up Appointment scheduled within 7 days?: Yes
--- NOTE | 2020-01-02 12:48 | XCELERA REPORT ---
[address] [address] Transthoracic Echocardiogram Report Name: TODDMIGUEL Cuevas JR Age: 69 yrs Gender: Male : 1950 Patient Status: Inpatient Patient Location: [address] [place] [address] Study Date: 01/02/2020 08:53 AM Height: 69 in Weight: 154 lb BSA: 1.8 m2 Procedure: A complete two-dimensional transthoracic echocardiogram was performed (2D, M-mode, spectral and color flow Doppler). Study Quality: Fair. Reason For Study: Heart failure Ordering Physician: DANIELE ROMERO Performed By: Marya Chaidez Interpretation Summary The patient was in mild sinus tachycardia during the study. The left ventricle is grossly normal size. Left ventricular systolic function is low normal. The Ejection Fraction estimate is 45-50%. LV diastolic function could not be adequately assessed. There is mild global hypokinesis of the left ventricle. Mild to moderate MR, trace TR. Aortic and pulmonic valves not well visualized. MMode/2D Measurements & Calculations RVDd: 2.2 cm LVIDd: 4.9 cm FS: 8.5 % Ao root diam: IVSd: 0.99 cm LVIDs: 4.5 cm EDV(Teich): 2.6 cm 112.7 ml Ao root area: LVPWd: 1.0 cm ESV(Teich): 5.5 cm2 91.5 ml EF(Teich): 18.8 % EDV(MOD-sp4): SV(MOD-sp4): 107.7 ml 44.9 ml ESV(MOD-sp4): 62.8 ml EF(MOD-sp4): 41.7 % Doppler Measurements & Calculations Ao V2 max: LV V1 max PG: MR max brittani: PA V2 max: 102.5 cm/sec 3.1 mmHg 565.6 cm/sec 53.6 cm/sec Ao max P.2 mmHg LV V1 max: MR max PG: PA max P.0 cm/sec 128.1 mmHg 1.1 mmHg Left Ventricle The left ventricle is grossly normal size. Left ventricular systolic function is low normal. The Ejection Fraction estimate is 45-50%. LV diastolic function could not be adequately assessed. There is mild global hypokinesis of the left ventricle. Right Ventricle The right ventricle is normal in size, thickness and function. The right ventricular systolic function is normal. Atria The right atrium is normal. The left atrial size is normal. The interatrial septum is difficult to see, but appears to be grossly normal. Mitral Valve The mitral valve is normal in structure and function. There is a mild to moderate amount of mitral regurgitation. Aortic Valve The aortic valve is not well visualized secondary to technical limitations. Tricuspid Valve The tricuspid valve is not well visualized, but is grossly normal. There is a trace amount of tricuspid regurgitation. Pulmonic Valve The pulmonic valve is not well visualized. : DANIELE ROMERO, Daniele
[2020-01-02 12:56] VITALS: BP 143/84
== END 2020-01-02 14:57 | disposition home or self-care (01) | DRG 291 ==
LOC: ER 19:12 → EH 12-31 00:55 → 3W 12-31 02:30
PROVIDERS: ADMIT Emergency Medicine; ATTEND Internal Medicine
DX: I13.0 Hypertensive heart and chronic kidney disease with heart failure and stage 1 through stage 4 chronic kidney disease, or unspecified chronic kidney disease (principal); I50.21 Acute systolic (congestive) heart failure; N17.9 Acute kidney failure, unspecified; I50.9 Heart failure, unspecified; N18.9 Chronic kidney disease, unspecified; I25.10 Atherosclerotic heart disease of native coronary artery without angina pectoris; E78.5 Hyperlipidemia, unspecified; E11.22 Type 2 diabetes mellitus with diabetic chronic kidney disease; Z95.5 Presence of coronary angioplasty implant and graft; I25.2 Old myocardial infarction; Z79.02 Long term (current) use of antithrombotics/antiplatelets; Z79.84 Long term (current) use of oral hypoglycemic drugs; Z79.899 Other long term (current) drug therapy; Z87.891 Personal history of nicotine dependence; Z91.14 Patient's other noncompliance with medication regimen
CPT/HCPCS: 36415; 71046; 71275; 80048; 80053; 80061; 81001; 82550; 82553; 82962; 83036; 83735; 83880; 84443; 84481; 84484; 85025; 85379; 93005; 93010; 93306; 96374; 99285; J1644; J1815; J1940; J3490